=== PATIENT | female | born 1945 | race African-American/Black ===

== ENCOUNTER 2016-11-16 12:55 | Emergency (ER) | payer OTHER ==
[2016-11-16 13:01] VITALS: BP 138/79; PULSE 118; TEMP 98.5; BMI 29.0
--- NOTE | 2016-11-16 13:27 | PDOC ---
[id number] No Limitations - History of Present Illness Initial Comments: 11/16/16 13:31 The patient is a 71-year-old woman, accompanied by family, with a past medical history of hypertension who presents to the emergency department via walk-in for further evaluation of persistent inner right thigh pain. No recent fall/ injury. As per patient, her symptoms started approximately 1 week ago. She states that since onset, her pain has subsided but has worsen the past 1-2 day(s ) as her pain had intensified and exacerbated with movements. Patient denies any associated symptoms of back/neck pain, weakness and paresthesias to her extremities. Patient admits she had an outpatient appointment with her Orthopedist,gregg Hernández for which she was informed she had a joint effusion, which was drained and was given a Cortisone shot. No fever, chills, generalized weakness. No cough, shortness of breath, chest pain, lightheadedness, dizziness, palpitations. No abdominal pain, nausea, vomiting, diarrhea. <Paris Mark - Last Filed: 11/16/16 14:47> <Jose Guadalupe Galvez - Last Filed: 11/17/16 09:17> - General Chief Complaint: Pain Stated Complaint: PAIN/ RT THIGH, KNEE, BODY ACHE Time Seen by Provider: 11/16/16 13:26 Past History <Paris Mark - Last Filed: 11/16/16 14:47> - Past Medical History Anemia: No Asthma: No Cancer: No Cardiac Disorders: No CVA: No COPD: No CHF: No Dementia: No Diabetes: No GI Disorders: No Disorders: No HTN: Yes Hypercholesterolemia: No Liver Disease: No Seizures: No Thyroid Disease: No - Surgical History Abdominal Surgery: No Appendectomy: No Cardiac Surgery: No Cholecystectomy: No Lung Surgery: No Neurologic Surgery: No Orthopedic Surgery: Yes (ARTHROSCOPY-RT KNEE) - Psycho/Social/Smoking Cessation Hx Anxiety: No Suicidal Ideation: No Smoking History: Never smoked Have you smoked in the past 12 months: No Hx Alcohol Use: No Drug/Substance Use Hx: No Substance Use Type: None Hx Substance Use Treatment: No <Jose Guadalupe Galvez - Last Filed: 11/17/16 09:17> - Past Medical History Allergies/Adverse Reactions: Allergies Allergy/AdvReac Type Severity Reaction Status Date / Time No Known Drug Allergies Allergy Verified 11/16/16 13:01 Home Medications: Ambulatory Orders Aspirin [Ecotrin] 81 mg PO ASDIR 03/09/15 Cholecalciferol (Vitamin D3) [Vitamin D3] 2,000 unit PO DAILY 03/09/15 Cyanocobalamin [Vitamin B12 -] 500 mcg PO DAILY 03/09/15 Hydrochlorothiazide [Hctz -] 25 mg PO DAILY 03/09/15 Losartan Potassium 100 mg PO DAILY 03/09/15 [place]-3S/Dha/Epa/Fish Oil [[place]-3 Fish Oil 1,000 mg Sfgl] 1 each PO DAILY 03/09 Ibuprofen [Motrin -] 600 mg PO QID PRN #120 tablet 11/16/16 Review of Systems - Review of Systems Able to Perform ROS?: Yes Comments:: 11/16/16 13:31 GENERAL/CONSTITUTIONAL: No fever or chills. No weakness. MUSCULOSKELETAL: Yes: +Right thigh pain. No joint swelling or pain. No neck or back pain. SKIN: No rash <Paris Mark - Last Filed: 11/16/16 14:47> *Physical Exam - Vital Signs Last Vital Signs Temp Pulse Resp BP Pulse Ox 98.5 F 118 H 20 138/79 99 11/16/16 12:58 11/16/16 12:58 11/16/16 12:58 11/16/16 12:58 11/16/16 12:58 - Physical Exam Comments: 11/16/16 13:32 GENERAL: Awake, alert, and fully oriented, in no acute distress LUNGS: Breath sounds equal, clear to auscultation bilaterally. No wheezes, and no crackles HEART: Regular rate and rhythm, normal S1 and S2, no murmurs, rubs or gallops ABDOMEN: Soft, nontender, normoactive bowel sounds. No guarding, no rebound. No masses EXTREMITIES: Normal range of motion, no edema. No clubbing or cyanosis. No cords, erythema, or tenderness NEUROLOGICAL: Cranial nerves II through XII grossly intact. Normal speech <Paris Mark - Last Filed: 11/16/16 14:47> - Vital Signs Last Vital Signs Temp Pulse Resp BP Pulse Ox 98.5 F 118 H 20 138/79 99 11/16/16 12:58 11/16/16 12:58 11/16/16 12:58 11/16/16 12:58 11/16/16 12:58 <Jose Guadalupe Galvez - Last Filed: 11/17/16 09:17> ED Treatment Course - RADIOLOGY Radiograph Interpretation: 11/16/16 14:04 EXAM: US/DUPLEX VASCUL US-1LEG Reviewed by Dr. Jose Guadalupe Galvez Interpreted by Dr. Aristides Chpaman IMPRESSION: No DVT is identified involving the right leg. EXAM: RAD/HIP PELVIS IMPRESSION: An AP view of the pelvis and images of the right hip reveal intact hips with no sign of fracture, subluxation or bone destruction. The SI joints are patent. There are degenerative spine changes. There is a nonspecific bowel pattern. There is though a sclerotic density seen in the right iliac bone just above the right acetabulum. The exact nature of this is unclear. Correlation recommended. Further imaging may be of help. <Paris Mark - Last Filed: 11/16/16 14:47> *DC/Admit/Observation/Transfer - Attestations Scribe Attestion: 11/16/16 13:32 Documentation prepared by Paris Mark, acting as medical clerk for Jose Guadalupe Galvez MD. <Paris Mark - Last Filed: 11/16/16 14:47> - Discharge Dispostion Admit: No <Jose Guadalupe Galvez - Last Filed: 11/17/16 09:17> Diagnosis at time of Disposition: Arthritis - Discharge Dispostion Disposition: HOME - Prescriptions Prescriptions: Ibuprofen [Motrin -] 600 mg PO QID PRN #120 tablet PRN Reason: Pain - Referrals Referrals: Cory Hernández MD [Staff Physician] - Franky Smith MD [Primary Care Provider] - - Patient Instructions Printed Discharge Instructions: Osteoarthritis
[2016-11-16] MEDS ORDERED: IBUPROFEN 600 MG TABLET (FP) PO ONE ×2 (15:20→15:24)
== END 2016-11-16 15:24 | disposition home or self-care (01) ==
LOC: JER 12:55
DX: M13.861 Other specified arthritis, right knee (principal)
CPT/HCPCS: 73523-TC; 93971-TC; 99283-25

== ENCOUNTER 2017-03-20 07:55 | Day surgery (SDC) | payer OTHER ==
[2017-03-18 17:00] VITALS: BMI 29.0
[2017-03-20] MEDS ORDERED: methylPREDNISolone ACET (DEPO) 80 MG/1 ML VIAL ONE (07:59)
[2017-03-20] MEDS ORDERED: LIDOCAINE HCL 1%, 10 MG/ML (20ML VIAL) ONE (08:00)
[2017-03-20 08:15] VITALS: TEMP 97.8
--- NOTE | 2017-03-20 09:07 | HP ---
Satellite [facility] - Chief Complaint Chief Complaint: right hip pain History Source: Patient Limitations to Obtaining History: No Limitations - Past Medical History Allergies/Adverse Reactions: Allergies Allergy/AdvReac Type Severity Reaction Status Date / Time No Known Drug Allergies Allergy Verified 03/18/17 17:00 Cardiovascular: Yes: HTN, Hyperlipdemia - Current Medications Current Medications: Home Medications Medication Instructions Recorded Aspirin [Ecotrin] 81 mg PO ASDIR 03/09/15 Cholecalciferol (Vitamin D3) 2,000 unit PO DAILY 03/09/15 [Vitamin D3] Cyanocobalamin [Vitamin B12 -] 500 mcg PO DAILY 03/09/15 Hydrochlorothiazide [Hctz -] 25 mg PO DAILY 03/09/15 Losartan Potassium 100 mg PO DAILY 03/09/15 [place]-3S/Dha/Epa/Fish Oil [[place]-3 1 each PO DAILY 03/09/15 Fish Oil 1,000 mg Sfgl] Acetaminophen [Tylenol] 650 mg PO PRN PRN 03/18/17 Magnesium Oxide [Magnesium] 400 mg PO HS 03/18/17 Satellite Physical Exam - Physical Examination Vital Signs: Vital Signs Period Temp Pulse Resp BP Sys/Rodriguez Pulse Ox Last 24 Hr 97.8 F 84 20 133/77 100 Extremities: Other (increased pain with IR/ER right hip) Satellite Impression/Plan - Impression/Plan Impression: DJD right hip Operative Procedure: arthrogram and injection of cortisone right hip Date to be Performed: 03/20/17
[2017-03-20] MEDS ORDERED: PROPOFOL 20 ML ONE (09:24)
--- NOTE | 2017-03-20 09:49 | OP ---
Operative Note - Note: Operative Date: 03/20/17 Pre-Operative Diagnosis: DJD RIGHT HIP Operation: ARTHROGRAM RIGHT HIP WITH INJECTION OF CORTISONE Post-Operative Diagnosis: Same as Pre-op Surgeon: Cory Hernández Anesthesia: General Estimated Blood Loss (mls): 0 Operative Report Dictated: Yes
[2017-03-20] MEDS ORDERED: ACETAMINOPHEN 325 MG TABLET (FP) PO PRN (09:55)
[2017-03-20] MEDS ORDERED: ONDANSETRON 4 MG/2 ML VIAL IVPUSH PRN (09:55)
[2017-03-20] MEDS ORDERED: LACTATED RINGERS SOLUTION 1,000 ML IV SCH (10:00)
[2017-03-20 12:41] VITALS: BP 142/82; PULSE 98
[2017-03-20] MEDS ORDERED: ACETAMINOPHEN 325 MG TABLET (FP) ONE (12:50)
--- NOTE | 2017-03-21 10:57 | OP ---
DATE OF OPERATION: 03/20/2017 PREOPERATIVE DIAGNOSIS: Degenerative joint disease right knee. POSTOPERATIVE DIAGNOSIS: Degenerative joint disease right knee. PROCEDURE: Right hip arthrogram and injection of cortisone. SURGICAL ATTENDING: Cory Hernández MD ANESTHESIA: IV sedation. COMPLICATIONS: None. DESCRIPTION OF PROCEDURE: The patient was taken to the operating room on March 20, 2017. IV sedation was administered by the anesthesiologist. Using fluoroscopic guidance, a spinal needle was administered anterior and 45-degree oblique toward the hip joint. This was done after prep and draping the area in the usual sterile fashion. Once the needle was thought to be in the joint, an injection of contrast diluted 50% was injected, which confirmed that the contrast was in the hip joint itself. The fluid was then aspirated out of the hip, and 10 mL of lidocaine with 80 mg of Depo-Medrol was administered into the hip joint. The needle was pulled. Sterile Band-Aid was applied with pressure. The patient was awakened from anesthesia and transferred to recovery in stable condition. No complications. Estimated blood loss negligible. Doni DEAN/[id number]
== END 2017-03-20 13:04 | disposition home or self-care (01) ==
LOC: JASU-SURG 07:55 → EDSTATUS 10:15 → JASU-SURG 13:04
PROVIDERS: ATTEND Orthopaedic Surgery
PROC: 3E0U3BZ Introduction of Anesthetic Agent into Joints, Percutaneous Approach (ICD-10-PCS; principal; 2017-03-20 09:30)
DX: M16.11 Unilateral primary osteoarthritis, right hip (principal)
CPT/HCPCS: 76000-TC; 94760

== ENCOUNTER 2019-04-24 09:27 | Emergency (ER) | payer OTHER ==
[2019-04-24 09:32] VITALS: BMI 29.0
--- NOTE | 2019-04-24 09:52 | PDOC ---
Attending Attestation - Resident Resident Name: Ena Singh - HPI HPI: 04/24/19 11:28 Pt presents to the ED complaining of a several week history of intermittent, band like headaches. Also complains of a several month history of feeling off balance when she walks. Denies temporal pain, jaw claudication, visula complaints, fevers, nausea or vomiting. Pain is gradual onset and mild in severity. Patient had negative Ct head and MRI in November. - Physicial Exam PE: 04/24/19 11:47 Agree with resident exam. Patient is alert and oriented and in no acute distress. No temporal tenderness. Lungs: CTA b/l CV: rrr no m/r/g Abdomen: soft, non tender non distended Neuro: alert and oriented x 3, CN grossly intact , moving all extremities with good strength. Tachycardia resolved. 04/24/19 11:51 - Medical Decision Making 04/24/19 11:51 Pt presents to the ED complaining of subacute intermittent headache and a subjective feeling of being off balance. Neurologically intact in the ED. Labs and CT head checked to rule out intracrainal lesion or electrolyte imbalance and are negative. Case discussed with Dr. Goel, geriatric personal care aide for Dr. Koch. Will discharge home with follow up with Dr. Koch and Neurology. Patient understands that she needs further work up.
[2019-04-24] MEDS ORDERED: ACETAMINOPHEN 1000 MG/100 ML VIAL (NON FORMULARY) IVPB ONE (09:57)
--- NOTE | 2019-04-24 09:57 | PDOC ---
History of Present Illness - General Chief Complaint: Headache Stated Complaint: ABD / HEADACHE Time Seen by Provider: 04/24/19 09:43 - History of Present Illness Initial Comments: 04/24/19 10:23 The patient is a 73 year old female with a PMH of HLD and OA who presents with headache. Headache is band like, "discomfort not pain" and has been occuring for the last 2-3 weeks in the morning. Endorses nausea without vomiting. No previous h/o similar headaches. Patient also reports isolated episodes of "dizziness" which occur when walking which she describes as feeling as if she can't make her target location. Denies associated weakness, visual or speech changes. Episodes have occurred once or twice weekly for the last 2-3 weeks. Was evaluated by her PMD, Dr. Rojas, last week but did not tell him about the episodes because she thought the symptoms had resolved. States she had a cat scan and MRI in November 2017 but she is unsure why and states there we no concerning findings to her knowledge. NKDA Surgical: none reported Social: lifetime non-smoker, denies other toxic habits PMD: Dr. Rojas Past History - Past Medical History Allergies/Adverse Reactions: Allergies Allergy/AdvReac Type Severity Reaction Status Date / Time No Known Drug Allergies Allergy Verified 04/24/19 09:32 Home Medications: Ambulatory Orders Aspirin [Ecotrin] 81 mg PO ASDIR 03/09/15 Cholecalciferol (Vitamin D3) [Vitamin D3] 1,000 unit PO DAILY 03/09/15 Cyanocobalamin [Vitamin B12 -] 500 mcg PO DAILY 03/09/15 [place]-3S/Dha/Epa/Fish Oil [[place]-3 Fish Oil 1,000 mg Sfgl] 1 each PO DAILY 03/09 Magnesium Oxide [Magnesium] 400 mg PO HS 03/18/17 Atorvastatin Ca [Lipitor] 10 mg PO ASDIR 04/24/19 Valsartan 350 mg PO DAILY 04/24/19 Vit C/E/Zn/Coppr/Lutein/Zeaxan [Preservision Areds 2 Softgel] 1 each PO ASDIR Anemia: No Asthma: No Cancer: No Cardiac Disorders: No CVA: No COPD: No CHF: No Dementia: No Diabetes: No GI Disorders: No Disorders: No HTN: Yes Hypercholesterolemia: No Liver Disease: No Seizures: No Thyroid Disease: No Other medical history: arthritis - Surgical History Abdominal Surgery: No Appendectomy: No Cardiac Surgery: No Cholecystectomy: No Lung Surgery: No Neurologic Surgery: No Orthopedic Surgery: Yes (ARTHROSCOPY-RT KNEE) - Suicide/Smoking/Psychosocial Hx Smoking History: Never smoked Have you smoked in the past 12 months: No Hx Alcohol Use: No Drug/Substance Use Hx: No Substance Use Type: None Hx Substance Use Treatment: No Review of Systems - Review of Systems Constitutional: No: Chills, Fever HEENTM: No: Recent change in vision Respiratory: No: Cough, Shortness of Breath Cardiac (ROS): No: Chest Pain, Lightheadedness, Palpitations *Physical Exam - Vital Signs Last Vital Signs Temp Pulse Resp BP Pulse Ox 98.7 F 104 H 18 171/95 H 98 04/24/19 09:28 04/24/19 09:28 04/24/19 09:28 04/24/19 09:28 04/24/19 09:28 - Physical Exam Comments: 04/24/19 13:52 General: awake, alert, well appearing Neuro: A&O x3, CN II-XII intact, 4+ strength in B/L UE and LE extremities, non- ataxic, non-antalgic gait CV: S1, S2, RRR Respiratory: CLTA B/L, no wheeze/crackle Abdomen: soft, non-tender, (+) bowel sounds Extremity: 2+ DP pulse B/L, no edema ED Treatment Course - LABORATORY CBC & Chemistry Diagram: 04/24/19 10:02 04/24/19 10:02 Medical Decision Making - Medical Decision Making 04/24/19 10:52 73 year old female with headaches and reported neurological deficits while ambulating. Hypertensive (179/95) and mildly tachycardic (HR 104) @ triage No neurologic deficit noted on exam including normal gait. Will obtain Head CT to r/o mass/malignancy, ischemic changes related to CVA/ TIA. 04/24/19 11:[address] negative Patient reassessed @ bedside Repeat BP 129/65, HR 70's Symptomatically improved, no repeat ambulatory symptoms while in ED Patient requires neurology evaluation of gait disturbance including vestibular disorder vs. extrapyramidal dysfuction Will page PMD to ensure patient receives proper evaluation/continuation of care Case d/w Dr. Goel, covering for patient's PMD. Agrees w/discharge home and patient can be seen in office tomorrow 04/24/19 12:03 Patient reassessed @ bedside Remains ASx, states she is comfortable with discharge home; notes she lives with her son Patient given referral to neurology and discharged home with plan to see PMD tomorrow for further evaluation. 04/24/19 13:39 I discussed the physical exam findings, ancillary test results and final diagnoses with the patient. I answered all of the patient's questions. The patient was satisfied with the care received and felt comfortable with the discharge plan and treatment plan. The patient will return to the Emergency Department with any new, persistent or worsening symptoms. *DC/Admit/Observation/Transfer Diagnosis at time of Disposition: Headache - Discharge Dispostion Disposition: HOME Condition at time of disposition: Improved Decision to Admit order: No - Referrals Referrals: Franky Smith MD [Primary Care Provider] - Ernst James MD [Staff Physician] - - Patient Instructions Printed Discharge Instructions: DI for Headache Additional Instructions: You were evaluated today for your headache and dizziness while walking. A cat scan of your head and all of your lab results showed no concerning findings. Please call Dr. Rojas's office tomorrow morning for an appointment to be evaluated in the next 3 days. We have also provided a referral to a neurologist, please make an appointment for evaluation in the next [address] Rojas for a referral. You can take Tylenol (up to 3000 mg daily) for your headache for the next week, however a neurologist should provide you with alf medication. Your care is not complete until you are evaluated by Dr. Rojas and a neurologist. Return to the Emergency Department for any new/worsening/concerning symptoms. - Post Discharge Activity
[2019-04-24] MEDS ORDERED: ACETAMINOPHEN INJECTION 100 ML IVPB ONE (10:03)
[2019-04-24 10:40] LABS: BASO % 0.8 % (0-2.0); EOS % 2.2 % (0-4.5); HEMATOCRIT 44.2 % (32.4-45.2); HEMOGLOBIN 14.5 GM/dL (10.7-15.3); LYMPH % 30.4 % (8-40); MCH 28.5 pg (25.7-33.7); MCHC 32.7 g/dl (32.0-36.0); MEAN CELL VOLUME 87.1 fl (80-96); MEAN PLT VOLUME 8.6 fl (7.5-11.1); MONO % 11.4 % (3.8-10.2); NEUT % 55.2 % (42.8-82.8); PLATELET COUNT 229 K/MM3 (134-434); RBC 5.08 M/mm3 (3.60-5.2); RDW 15.5 % (11.6-15.6); WHITE BLOOD COUNT 4.1 K/mm3 (4.0-10.0)
[2019-04-24 10:54] LABS: ALBUMIN 3.6 g/dl (3.4-5.0); BILIRUBIN,TOTAL 0.4 mg/dL (0.2-1); BLOOD UREA NITROGEN 13.1 mg/dL (7-18); POTASSIUM 4.3 mmol/L (3.5-5.1); TOT PROT 7.6 g/dl (6.4-8.2)
[2019-04-24 13:07] VITALS: BP 167/95; PULSE 70; TEMP 97.8
--- NOTE | 2019-04-25 11:45 | EKG ---
Test Reason : Blood Pressure : / mmHG Vent. Rate : 088 BPM Atrial Rate : 088 BPM P-R Int : 134 ms QRS Dur : 076 ms QT Int : 360 ms P-R-T Axes : 068 015 045 degrees QTc Int : 435 ms NORMAL SINUS RHYTHM POSSIBLE LEFT ATRIAL ENLARGEMENT BORDERLINE ECG WHEN COMPARED WITH ECG OF 09-MAR-2015 11:48, NO SIGNIFICANT CHANGE WAS FOUND Confirmed by BARAK ROBERSON MD ([id number]) on 04/25/2019 11:44:46 AM Referred By: Confirmed By:BARAK ROBERSON MD
== END 2019-04-24 13:10 | disposition home or self-care (01) ==
LOC: JER 09:27
PROC: 3E033NZ Introduction of Analgesics, Hypnotics, Sedatives into Peripheral Vein, Percutaneous Approach (ICD-10-PCS; principal; 2019-04-24)
DX: R51 Headache (principal); I10 Essential (primary) hypertension; E78.5 Hyperlipidemia, unspecified
CPT/HCPCS: 36415; 70450-TC; 80053; 85025; 93005; 93010; 96374; 99283-25; J0131

== ENCOUNTER 2019-10-03 15:10 | Observation (INO) | payer OTHER ==
[2019-10-03 15:18] VITALS: BMI 29.3
--- NOTE | 2019-10-03 15:19 | PDOC ---
Rapid Medical Evaluation Chief Complaint: Headache Time Seen by Provider: 10/03/19 15:14 Medical Evaluation: Allergies Allergy/AdvReac Type Severity Reaction Status Date / Time No Known Drug Allergies Allergy Verified 04/24/19 09:32 10/03/19 15:15 I have performed a brief in-person evaluation of this patient. The patient presents with a chief complaint of:acute onset of headche and dizziness- BP per EMS 180/120, denies numbness or tingling. no unilateral changes. Pertinent physical exam findings: A&Ox 3, no neuro chnages I have ordered the following: cbc, CMP, EKG The patient will proceed to the ED for further evaluation. 10/03/19 15:16 Discharge Disposition - Diagnosis Dizziness - Referrals - Patient Instructions - Post Discharge Activity
[2019-10-03 15:52] LABS: BASO % 1.4 % (0-2.0); EOS % 1.9 % (0-4.5); HEMATOCRIT 44.8 % (32.4-45.2); HEMOGLOBIN 14.6 GM/dL (10.7-15.3); LYMPH % 31.3 % (8-40); MCH 28.5 pg (25.7-33.7); MCHC 32.6 g/dl (32.0-36.0); MEAN CELL VOLUME 87.5 fl (80-96); MEAN PLT VOLUME 8.6 fl (7.5-11.1); MONO % 12.5 % (3.8-10.2); NEUT % 52.9 % (42.8-82.8); PLATELET COUNT 274 K/MM3 (134-434); RBC 5.12 M/mm3 (3.60-5.2); RDW 15.4 % (11.6-15.6); WHITE BLOOD COUNT 4.8 K/mm3 (4.0-10.0)
[2019-10-03 16:30] LABS: ALK PHOS 142 U/L (45-117); ANION GAP 7 MMOL/L (8-16); BILIRUBIN,TOTAL 0.4 mg/dL (0.2-1); BLOOD UREA NITROGEN 10.9 mg/dL (7-18); CALCIUM 9.8 mg/dL (8.5-10.1); CHLORIDE 108 mmol/L (98-107); CO2 27 mmol/L (21-32); GLUCOSE,RANDOM 83 mg/dL (74-106); POTASSIUM 4.1 mmol/L (3.5-5.1); SGOT/AST 30 U/L (15-37); SGPT/ALT 27 U/L (13-61); SODIUM 142 mmol/L (136-145)
--- NOTE | 2019-10-03 16:35 | PDOC ---
Attending Attestation - Resident Resident Name: Alexx Albert - ED Attending Attestation I have performed the following: I have examined & evaluated the patient, The case was reviewed & discussed with the resident, I agree w/resident's findings & plan, Exceptions are as noted
--- NOTE | 2019-10-03 16:55 | PDOC ---
History of Present Illness - General Chief Complaint: Headache Stated Complaint: HEADACHE/DIZZINESS Time Seen by Provider: 10/03/19 15:14 - History of Present Illness Initial Comments: 10/03/19 16:45 74f with pmh of HTN presents with episode of lightheadedness after standing up abruptly around 2pm today. She took meclizine with no relief. "felt the blood drain from [her] head". Had occasional episode of diziness in the past that were treated with meclizine. Denies headache, change in vision, chest pain, shortness of breath, n/v/d or sensation of vertigo. Past History - Past Medical History Allergies/Adverse Reactions: Allergies Allergy/AdvReac Type Severity Reaction Status Date / Time No Known Drug Allergies Allergy Verified 04/24/19 09:32 Home Medications: Ambulatory Orders Aspirin [Ecotrin] 81 mg PO ASDIR 03/09/15 Cholecalciferol (Vitamin D3) [Vitamin D3] 1,000 unit PO DAILY 03/09/15 Cyanocobalamin [Vitamin B12 -] 500 mcg PO DAILY 03/09/15 [place]-3S/Dha/Epa/Fish Oil [[place]-3 Fish Oil 1,000 mg Sfgl] 1 each PO DAILY 03/09 Magnesium Oxide [Magnesium] 400 mg PO HS 03/18/17 Atorvastatin Ca [Lipitor] 10 mg PO ASDIR 04/24/19 Valsartan 350 mg PO DAILY 04/24/19 Vit C/E/Zn/Coppr/Lutein/Zeaxan [Preservision Areds 2 Softgel] 1 each PO ASDIR Anemia: No Asthma: No Cancer: No Cardiac Disorders: No CVA: No COPD: No CHF: No Dementia: No Diabetes: No GI Disorders: No Disorders: No HTN: Yes Hypercholesterolemia: No Liver Disease: No Seizures: No Thyroid Disease: No - Surgical History Abdominal Surgery: No Appendectomy: No Cardiac Surgery: No Cholecystectomy: No Lung Surgery: No Neurologic Surgery: No Orthopedic Surgery: Yes (ARTHROSCOPY-RT KNEE) - Immunization History Immunization Up to Date: No - Psycho Social/Smoking Cessation Hx Smoking History: Never smoked Have you smoked in the past 12 months: No Information on smoking cessation initiated: No Hx Alcohol Use: No Drug/Substance Use Hx: No Substance Use Type: None Hx Substance Use Treatment: No Review of Systems - Review of Systems Able to Perform ROS?: Yes Is the patient limited Cambodian proficient: No Constitutional: No: Symptoms Reported HEENTM: No: Symptoms Reported Respiratory: No: Symptoms reported Cardiac (ROS): No: Symptoms Reported ABD/GI: No: Blood Streaked Bowels : No: Symptoms Reported Musculoskeletal: No: Symptoms Reported Integumentary: No: Symptoms Reported Neurological: Yes: See HPI All Other Systems: Reviewed and Negative *Physical Exam - Vital Signs Last Vital Signs Temp Pulse Resp BP Pulse Ox 98.6 F 105 H 16 163/95 97 10/03/19 15:15 10/03/19 15:15 10/03/19 15:15 10/03/19 15:15 10/03/19 15:15 - Physical Exam General Appearance: Yes: Nourished, Appropriately Dressed. No: Apparent Distress HEENT: positive: EOMI, VIRGIL, Normal ENT Inspection Respiratory/Chest: positive: Lungs Clear, Normal Breath Sounds. negative: Chest Tender, Respiratory Distress Cardiovascular: positive: Regular Rhythm, Regular Rate, S1, S2 Gastrointestinal/Abdominal: positive: Normal Bowel Sounds, Flat, Soft. negative : Tender Musculoskeletal: positive: Normal Inspection. negative: CVA Tenderness Extremity: positive: Normal Capillary Refill, Normal Inspection, Normal Range of Motion Integumentary: positive: Normal Color, Dry, Warm Neurologic: positive: Fully Oriented, Alert, Normal Mood/Affect, Normal Response , Motor Strength 5/5 ED Treatment Course - LABORATORY CBC & Chemistry Diagram: 10/03/19 15:39 10/03/19 15:39 - ADDITIONAL ORDERS Additional order review: Laboratory Results 10/03/19 15:39 Sodium 142 Potassium 4.1 Chloride 108 H Carbon Dioxide 27 Anion Gap 7 L BUN 10.9 Creatinine 1.0 Est GFR (CKD-EPI)AfAm 63.38 Est GFR (CKD-EPI)NonAf 54.68 Random Glucose 83 Calcium 9.8 Total Bilirubin 0.4 AST 30 ALT 27 Alkaline Phosphatase 142 H Total Protein 8.0 Albumin 4.0 10/03/19 15:39 RBC 5.12 MCV 87.5 MCHC 32.6 RDW 15.4 MPV 8.6 Neutrophils % 52.9 Lymphocytes % 31.3 Monocytes % 12.5 H Eosinophils % 1.9 Basophils % 1.4 Medical Decision Making - Medical Decision Making 11/18/19 16:55 74f with lightheadedness exacerbated when standing abruptly. Likely orthostatics vs cardiogenic vs vertigo 10/03/19 19:10 Patient labs WNKl. sTILL FEEL DIZZY. wILL GIVE FLUID, REGLAN AND TYLENOL AND REASSESS. Patient signed out to Dr. Avitia. Discharge - Discharge Information Problems reviewed: Yes Clinical Impression/Diagnosis: Dizziness Condition: Stable - Follow up/Referral Referrals: Franky Smith MD [Primary Care Provider] - - Patient Discharge Instructions - Post Discharge Activity
[2019-10-03] MEDS ORDERED: ACETAMINOPHEN 1000 MG/100 ML VIAL (NON FORMULARY) IVPB ONE (18:20)
[2019-10-03] MEDS ORDERED: METOCLOPRAMIDE HCL INJECTION 10 MG/2 ML VIAL IVPUSH ONE (18:20)
--- NOTE | 2019-10-03 18:24 | PDOC ---
Documentation entered by Cristela Loo SCRIBE, acting as scribe for Caroline Jules DO. Caroline Jules DO: This documentation has been prepared by the Cinda wilsk Xhesika, SCRIBE, under my direction and personally reviewed by me in its entirety. I confirm that the documentation accurately reflects all work, treatment, procedures, and medical decision making performed by me. Attending Attestation - Resident Resident Name: Alexx Albert - ED Attending Attestation I have performed the following: I have examined & evaluated the patient, The case was reviewed & discussed with the resident, I agree w/resident's findings & plan, Exceptions are as noted - HPI HPI: 10/03/19 17:35 The patient is a 74 year old female with a significant PMH of HTN, HLD, and vertigo who presents to the emergency department for lightheadedness since 2pm after standing up quickly. Patient notes she took meclizine with no relief of symptoms. The patient denies chest pain, shortness of breath, headache or vision changes. Denies fever, chills, cough, nausea, vomiting, diarrhea and constipation. Allergies: NKDA Past surgical history: ARTHROSCOPY-RT KNEE) PCP: Franky Smith - Physicial Exam PE: 10/03/19 17:36 GENERAL: Awake, alert, and fully oriented, in no acute distress HEAD: No signs of trauma EYES: PERRLA, EOMI, sclera anicteric, conjunctiva clear ENT: Auricles normal inspection, hearing grossly normal, nares patent, oropharynx clear without exudates. Moist mucosa NECK: Normal ROM, supple, no lymphadenopathy, JVD, or masses LUNGS: Breath sounds equal, clear to auscultation bilaterally. No wheezes, and no crackles HEART: Regular rate and rhythm, normal S1 and S2, no murmurs, rubs or gallops ABDOMEN: Soft, nontender, normoactive bowel sounds. No guarding, no rebound. No masses EXTREMITIES: Normal range of motion, no edema. No clubbing or cyanosis. No cords, erythema, or tenderness NEUROLOGICAL: Cranial nerves II through XII grossly intact. Normal speech SKIN: Warm, Dry, normal turgor, no rashes or lesions noted. - Medical Decision Making 10/03/19 17:45 a/p: 74yo female with hx of htn and arthritis with dizziness today -pt with hx of vertigo-took meclizine at home without improvement -denies n/v/d -denies holder -denies blurred vision -denies paresthesias -pt sitting up, laughing, in nad -does not have orthostatic vs -will give tylenol and reglan -labs sent reviewed, no acute findings 10/03/19 18:56 pt receiving meds if pt feels better after hydration and meds she is stable for dc to home Heart Score/ECG Review - ECG Intrepretation Comment:: 10/03/19 18:24 sinus tach at 108, nl axis, nl interval, no acute st/t wave findings
[2019-10-03] MEDS ORDERED: LACTATED RINGERS SOLUTION 1000 ML INFUS.BAG IV ONE (18:33)
[2019-10-03] MEDS ORDERED: METOCLOPRAMIDE HCL INJECTION 10 MG/2 ML VIAL ONE ×2 (18:48→20:54)
[2019-10-03] MEDS ORDERED: ACETAMINOPHEN INJECTION 100 ML IVPB ONE (18:49)
--- NOTE | 2019-10-03 20:19 | PDOC ---
*Physical Exam - Vital Signs Last Vital Signs Temp Pulse Resp BP Pulse Ox 98.5 F 101 H 15 145/73 97 10/03/19 17:24 10/03/19 17:24 10/03/19 17:24 10/03/19 17:24 10/03/19 17:24 ED Treatment Course - LABORATORY CBC & Chemistry Diagram: 10/03/19 15:39 10/03/19 15:39 - ADDITIONAL ORDERS Additional order review: Laboratory Results 10/03/19 15:39 Sodium 142 Potassium 4.1 Chloride 108 H Carbon Dioxide 27 Anion Gap 7 L BUN 10.9 Creatinine 1.0 Est GFR (CKD-EPI)AfAm 63.38 Est GFR (CKD-EPI)NonAf 54.68 Random Glucose 83 Calcium 9.8 Total Bilirubin 0.4 AST 30 ALT 27 Alkaline Phosphatase 142 H Creatine Kinase 174 Creatine Kinase Index 1.2 CK-MB (CK-2) 2.2 Troponin I < 0.02 Total Protein 8.0 Albumin 4.0 10/03/19 15:39 RBC 5.12 MCV 87.5 MCHC 32.6 RDW 15.4 MPV 8.6 Neutrophils % 52.9 Lymphocytes % 31.3 Monocytes % 12.5 H Eosinophils % 1.9 Basophils % 1.4 Medical Decision Making - Medical Decision Making 10/03/19 20:17 Patient signed out to me pending reevaluation for possible discharge Upon further questioning patient admits that she did not have actual dizziness but felt like she was going to pass out after exertion while cleaning the house and moving heavy objects She does have a salesforce developer whom she has seen recently for similar symptoms but has not had a stress test for some time She was tachycardic on arrival but has had no leg swelling, calf pain shortness of breath chest pain or dyspnea on exertion Ambulation is intact Will CT head, hold for observation for presyncope and further evaluation Discharge - Discharge Information Problems reviewed: Yes Clinical Impression/Diagnosis: Dizziness Condition: Stable - Follow up/Referral Referrals: Franky Smith MD [Primary Care Provider] - - Patient Discharge Instructions - Post Discharge Activity
--- NOTE | 2019-10-03 20:36 | PDOC ---
*Physical Exam - Vital Signs Last Vital Signs Temp Pulse Resp BP Pulse Ox 98.5 F 101 H 15 145/73 97 10/03/19 17:24 10/03/19 17:24 10/03/19 17:24 10/03/19 17:24 10/03/19 17:24 - Physical Exam Comments: 10/03/19 20:35 GENERAL: Awake, alert, and fully oriented, in no acute distress HEAD: No signs of trauma, normocephalic, atraumatic EYES: PERRLA, EOMI, sclera anicteric, conjunctiva clear ENT: Auricles normal inspection, hearing grossly normal, nares patent, oropharynx clear without exudates. Moist mucosa NECK: Normal ROM, supple, no lymphadenopathy, JVD, or masses LUNGS: No distress, speaks full sentences, clear to auscultation bilaterally HEART: Regular rate and rhythm, normal S1 and S2, no murmurs, rubs or gallops, peripheral pulses normal and equal bilaterally. ABDOMEN: Soft, nontender, normoactive bowel sounds. No guarding, no rebound. No masses EXTREMITIES : Normal inspection, Normal range of motion, no edema. No clubbing or cyanosis NEUROLOGICAL: Negative nystagmus. Cranial nerves II through XII grossly intact. Normal speech, normal gait, no focal sensorimotor deficits. absent ataxia with gait. Nml BALTA. Absent dysmetria on FTN. SKIN: Warm, Dry, normal turgor, no rashes or lesions noted ED Treatment Course - LABORATORY CBC & Chemistry Diagram: 10/03/19 15:39 10/03/19 15:39 - ADDITIONAL ORDERS Additional order review: Laboratory Results 10/03/19 15:39 Sodium 142 Potassium 4.1 Chloride 108 H Carbon Dioxide 27 Anion Gap 7 L BUN 10.9 Creatinine 1.0 Est GFR (CKD-EPI)AfAm 63.38 Est GFR (CKD-EPI)NonAf 54.68 Random Glucose 83 Calcium 9.8 Total Bilirubin 0.4 AST 30 ALT 27 Alkaline Phosphatase 142 H Creatine Kinase 174 Creatine Kinase Index 1.2 CK-MB (CK-2) 2.2 Troponin I < 0.02 Total Protein 8.0 Albumin 4.0 10/03/19 15:39 RBC 5.12 MCV 87.5 MCHC 32.6 RDW 15.4 MPV 8.6 Neutrophils % 52.9 Lymphocytes % 31.3 Monocytes % 12.5 H Eosinophils % 1.9 Basophils % 1.4 - RADIOLOGY Radiology Studies Ordered: Category Date Time Status HEAD CT WITHOUT CONTRAST [CT] Stat CT Scan 10/03/19 19:49 Ordered Medical Decision Making - Medical Decision Making 10/03/19 20:26 73 yo F withh/o HLD, HTN, vertigo who p/w lightheadedness. HR 105, BP 163/ Patient reports presyncopal event at approximately 2:00 PM today, exacerbated by ambulation with absent LOC. Patient reports lightheadedness reproducible with head movement, and reports elevated HR, now resolved. Physical exam unremarkable. Pt. denies MONTOYA, vision change, palpitations, PND, leg swelling/pain , N/V, F,C, CP, SOB, urinary complaints, hematuria, BPR, abdominal pain, diarrhea, constipation, weakness, sensory changes. Will assess for cardiac dysarythmias, electrolyte abnml, metabolic and toxic derangements, acid-base disturbances, infection. Ed Course: EKG: Sinus tachycardia HR 108, NSR with absent KEELY, STD. Nml interval duration and axis. Nml R wave progression. Absent Q waves. 10/03/19 20:49 Laboratory Tests 10/03/19 10/03/19 15:39 15:39 WBC 4.8 Hgb 14.6 Hct 44.8 Plt Count 274 BUN 10.9 Creatinine 1.0 Random Glucose 83 Troponin I < 0.02 10/03/19 21:49 CTH: No acute change Patient endorsed to Dr. Belle. Admitted tele. Discharge - Discharge Information Problems reviewed: Yes Clinical Impression/Diagnosis: Dizziness Condition: Stable - Admission Yes - Follow up/Referral Referrals: Franky Smith MD [Primary Care Provider] - - Patient Discharge Instructions - Post Discharge Activity
[2019-10-03] MEDS ORDERED: SODIUM CHLORIDE 500 ML IV STA (22:28)
--- NOTE | 2019-10-03 22:47 | PN ---
Physical Exam: SUBJECTIVE: 74 y/o female w PMH HLD, HTN, and vertigo presenting with c/o dizziness. She states that staring this afternoon, while cleaning her home she felt light-headed. She did NOT feel the room spinning, did not fall, and there was no LOC. She states that she drank some water and resting in bed, which alleviated her symptoms. She states she experienced concurrent palpitations. Otherwise there were no associated symptoms. She states that she has not been drinking much water recently but has been taking her home medications as prescribed. She denies NVFD. She denies recent illness, sick contacts and recent travel. She denies SOB and CP. PCP: Dr. Koch Past surgical history: RIGHT knee arthroscopic repair Past social history: Denies etoh, cigarette, and recreational drug use. She admits to a poor diet; low fiber/processed foods. No regular exercise Family history: Pt unaware NKFDA OBJECTIVE: Vital Signs Period Temp Pulse Resp BP Sys/Rodriguez Pulse Ox Last 24 Hr 98.5 F-98.6 F 101-105 15-16 145-163/73-95 97-97 GENERAL: The patient is awake, alert, and fully oriented, in no acute distress. HEAD: Normal with no signs of trauma. EYES: PERRL, extraocular movements intact, sclera anicteric, conjunctiva clear. No ptosis. ENT: Ears normal, nares patent, oropharynx clear without exudates, moist mucous membranes. NECK: Trachea midline, full range of motion, supple. LUNGS: Breath sounds equal, clear to auscultation bilaterally, no wheezes, no crackles, no accessory muscle use. HEART: Regular rate and rhythm, S1, S2 without murmur, rub or gallop. ABDOMEN: Soft, nontender, nondistended, normoactive bowel sounds, no guarding, no rebound, no hepatosplenomegaly, no masses. EXTREMITIES: 2+ pulses, warm, well-perfused, no edema. NEUROLOGICAL: Cranial nerves II through XII grossly intact. Normal speech, gait not observed. PSYCH: Normal mood, normal affect. SKIN: Warm, dry, normal turgor, no rashes or lesions noted Laboratory Results - last 24 hr 10/03/19 10/03/19 15:39 15:39 WBC 4.8 RBC 5.12 Hgb 14.6 Hct 44.8 MCV 87.5 MCH 28.5 MCHC 32.6 RDW 15.4 Plt Count 274 MPV 8.6 Absolute Neuts (auto) 2.5 Neutrophils % 52.9 Lymphocytes % 31.3 Monocytes % 12.5 H Eosinophils % 1.9 Basophils % 1.4 Nucleated RBC % 0 Sodium 142 Potassium 4.1 Chloride 108 H Carbon Dioxide 27 Anion Gap 7 L BUN 10.9 Creatinine 1.0 Est GFR (CKD-EPI)AfAm 63.38 Est GFR (CKD-EPI)NonAf 54.68 Random Glucose 83 Calcium 9.8 Total Bilirubin 0.4 AST 30 ALT 27 Alkaline Phosphatase 142 H Creatine Kinase 174 Creatine Kinase Index 1.2 CK-MB (CK-2) 2.2 Troponin I < 0.02 Total Protein 8.0 Albumin 4.0 ASSESSMENT/PLAN: ATTENDING PHYSICIAN STATEMENT I saw and evaluated the patient. I reviewed the resident's note and discussed the case with the resident. I agree with the resident's findings and plan as documented. SUBJECTIVE: OBJECTIVE: ASSESSMENT AND PLAN:
[2019-10-03 22:48] LABS: PH,URINE 6.5 (5.0-8.0); URINE APPEARANCE CLEAR; URINE BILIRUBIN NEGATIVE (NEGATIVE); URINE COLOR YELLOW; URINE GLUCOSE (UA) NEGATIVE (NEGATIVE); URINE KETONE NEGATIVE (NEGATIVE); URINE LEUK ESTERASE NEGATIVE (NEGATIVE); URINE NITRITE NEGATIVE (NEGATIVE); URINE PROTEIN NEGATIVE (NEGATIVE); URINE UROBILINOGEN 0.2 mg/dL (0.2-1.0)
--- NOTE | 2019-10-03 23:01 | HP ---
CHIEF COMPLAINT: Dizziness PCP: Franky Smith MD HISTORY OF PRESENT ILLNESS: 74 y/o female w PMH HLD, HTN, and vertigo presenting with c/o dizziness. She states that starting this afternoon (10/02/19), while cleaning her home she felt light-headed. She did NOT feel the room spinning, no aura, did not fall, and there was no LOC. She was NOT doing any heavy lifting; was packing groceries. She states that she drank some water and rested in bed, which alleviated her symptoms. She is able to walk for 1 mile w/o symptoms. She states she experienced concurrent palpitations. Otherwise there were no associated symptoms. She states that she has not been drinking much water recently but has been taking her home medications as prescribed. She denies feeling anxious and reports no new/excess stress. She denies NVFD. She denies recent illness, sick contacts and recent travel. She denies SOB and CP. ER course was notable for: (1) Sinus tachycardia HR 108 (2) NSR (3) Orthostatic BP NEGATIVE Recent Travel: Denies PAST MEDICAL HISTORY: PMH HLD, HTN, and vertigo PAST SURGICAL HISTORY: RIGHT knee arthroscopic repair Social History: Smoking: denies Alcohol: denies Drugs: denies Family History: Unaware Allergies: No Known Drug Allergies Allergy (Verified 04/24/19 09:32) HOME MEDICATIONS: Home Medications Medication Instructions Recorded Aspirin [Ecotrin] 81 mg PO ASDIR 03/09/15 Cholecalciferol (Vitamin D3) 1,000 unit PO DAILY 03/09/15 [Vitamin D3] Cyanocobalamin [Vitamin B12 -] 500 mcg PO DAILY 03/09/15 [place]-3S/Dha/Epa/Fish Oil [[place]-3 1 each PO DAILY 03/09/15 Fish Oil 1,000 mg Sfgl] Magnesium Oxide [Magnesium] 400 mg PO HS 03/18/17 Atorvastatin Ca [Lipitor] 10 mg PO ASDIR 04/24/19 Valsartan 350 mg PO DAILY 04/24/19 Vit C/E/Zn/Coppr/Lutein/Zeaxan 1 each PO ASDIR 04/24/19 [Preservision Areds 2 Softgel] REVIEW OF SYSTEMS CONSTITUTIONAL: Absent: fever, chills, diaphoresis, generalized weakness, malaise, loss of appetite, weight change HEENT: Absent: rhinorrhea, nasal congestion, throat pain, throat swelling, difficulty swallowing, mouth swelling, ear pain, eye pain, visual changes CARDIOVASCULAR: Absent: chest pain, syncope, palpitations, irregular heart rate, lightheadedness , peripheral edema RESPIRATORY: Absent: cough, shortness of breath, dyspnea with exertion, orthopnea, wheezing, stridor, hemoptysis GASTROINTESTINAL: Absent: abdominal pain, abdominal distension, nausea, vomiting, diarrhea, constipation, melena, hematochezia GENITOURINARY: Absent: dysuria, frequency, urgency, hesitancy, hematuria, flank pain, genital pain MUSCULOSKELETAL: Absent: myalgia, arthralgia, joint swelling, back pain, neck pain SKIN: Absent: rash, itching, pallor HEMATOLOGIC/IMMUNOLOGIC: Absent: easy bleeding, easy bruising, lymphadenopathy, frequent infections ENDOCRINE: Absent: unexplained weight gain, unexplained weight loss, heat intolerance, cold intolerance NEUROLOGIC: Absent: headache, focal weakness or paresthesias, dizziness, unsteady gait, seizure, mental status changes, bladder or bowel incontinence PSYCHIATRIC: Absent: anxiety, depression, suicidal or homicidal ideation, hallucinations. PHYSICAL EXAMINATION Vital Signs - 24 hr 10/03/19 10/03/19 15:15 17:24 Temperature 98.6 F 98.5 F Pulse Rate 105 H Pulse Rate [ 101 H Right Radial] Respiratory 16 15 Rate Blood Pressure 163/95 Blood Pressure 145/73 [Right Arm] O2 Sat by Pulse 97 97 Oximetry (%) Orthostatic BP NEGATIVE GENERAL: AOx3, in no acute distress. HEAD: NCAT EYES: CHEKO, EOMI, conjunctiva clear. ENT: Ears normal, nares patent, oropharynx clear without exudates. Moist mucous membranes. NECK: Normal range of motion, supple without lymphadenopathy, JVD, or masses. LUNGS: CTAB. No wheezes, and no crackles. No accessory muscle use. HEART: RRR s1 s2 ABDOMEN: Soft, BS present in all 4 quadrants, non-distended, no JVD, MUSCULOSKELETAL: No bony deformities or tenderness. No CVA tenderness. UPPER EXTREMITIES: 2+ pulses, warm, well-perfused. No cyanosis. No clubbing. No peripheral edema. LOWER EXTREMITIES: 2+ pulses, warm, well-perfused. No calf tenderness. No peripheral edema. NEUROLOGICAL: Cranial nerves II-XII intact. Normal speech. Normal gait and no induced symptoms. NO dysdiadodyskinesia. PSYCHIATRIC: Cooperative. Good eye contact. Appropriate mood and affect. SKIN: Warm, dry, normal turgor, no rashes or lesions noted, normal capillary refill. Laboratory Results - last 24 hr 10/03/19 10/03/19 10/03/19 15:39 15:39 22:40 WBC 4.8 RBC 5.12 Hgb 14.6 Hct 44.8 MCV 87.5 MCH 28.5 MCHC 32.6 RDW 15.4 Plt Count 274 MPV 8.6 Absolute Neuts (auto) 2.5 Neutrophils % 52.9 Lymphocytes % 31.3 Monocytes % 12.5 H Eosinophils % 1.9 Basophils % 1.4 Nucleated RBC % 0 Sodium 142 Potassium 4.1 Chloride 108 H Carbon Dioxide 27 Anion Gap 7 L BUN 10.9 Creatinine 1.0 Est GFR (CKD-EPI)AfAm 63.38 Est GFR (CKD-EPI)NonAf 54.68 Random Glucose 83 Calcium 9.8 Total Bilirubin 0.4 AST 30 ALT 27 Alkaline Phosphatase 142 H Creatine Kinase 174 Creatine Kinase Index 1.2 CK-MB (CK-2) 2.2 Troponin I < 0.02 Total Protein 8.0 Albumin 4.0 Urine Color Yellow Urine Appearance Clear Urine pH 6.5 D Ur Specific [place] 1.011 Urine Protein Negative Urine Glucose (UA) Negative Urine Ketones Negative Urine Blood Negative Urine Nitrite Negative Urine Bilirubin Negative Urine Urobilinogen 0.2 Ur Leukocyte Esterase Negative ASSESSMENT/PLAN: 74 y/o female w PMH HLD, HTN, and vertigo presenting with c/o dizziness. She describes poor hydration. Orthostatic BP negative. Compliant with vertigo regimen. # Pre-syncope - Admit to observation - Hydrate - Electrocardiogram - Carotid Doppler - TSH - Bedrest - Fall precautions - U tox - b12 #F/E/N - NS - Cont. to monitor - Sodium controlled diet # DVT prophylaxis - Heparin SQ # Disposition - Admit to observation Steve Dahl MD Visit type - Emergency Visit Emergency Visit: Yes ED Registration Date: 10/03/19 Care time: The patient presented to the Emergency Department on the above date and was hospitalized for further evaluation of their emergent condition. - New Patient This patient is new to me today: Yes Date on this admission: 10/04/19 - Critical Care Critical Care patient: No ATTENDING PHYSICIAN STATEMENT I saw and evaluated the patient. I reviewed the resident's note and discussed the case with the resident. I agree with the resident's findings and plan as documented. SUBJECTIVE: OBJECTIVE: ASSESSMENT AND PLAN:
--- NOTE | 2019-10-04 01:15 | PN ---
Teaching Attending Note Name of Resident: Steve Dahl ATTENDING PHYSICIAN STATEMENT I saw and evaluated the patient. I reviewed the resident's note and discussed the case with the resident. I agree with the resident's findings and plan as documented. SUBJECTIVE: 74-year-old woman with a history of hypertension, dyslipidemia, vertigo presented to hospital complaining of lightheadedness since 2 PM on 10/03/2019. Patient noticed that this lightheadedness was worse with standing up quickly. Patient reports that she took meclizine with no relief of symptoms. No chest pain, palpitations, or shortness of breath OBJECTIVE: Last Vital Signs Temp Pulse Resp BP Pulse Ox 98.5 F 101 H 15 145/73 97 10/03/19 17:24 10/03/19 17:24 10/03/19 17:24 10/03/19 17:24 10/03/19 17:24 GENERAL: Well developed, well nourished. Awake and alert. No acute distress. HEENT: Normocephalic, atraumatic. PERRLA, EOMI. No conjunctival pallor. Sclera are non- icteric. Moist mucous membranes. Oropharynx is clear. NECK: Supple. Full ROM. No JVD. Carotid pulses 2+ and symmetric, without bruits. No thyromegaly. No lymphadenopathy. CARDIOVASCULAR: Regular rate and rhythm. No murmurs, rubs, or gallops. Distal pulses are 2+ and symmetric. PULMONARY: No evidence of respiratory distress. Lungs clear to auscultation bilaterally. No wheezing, rales or rhonchi. ABDOMINAL: Soft. Non-tender. Non-distended. No rebound or guarding. No organomegaly. Normoactive bowel sounds. MUSCULOSKELETAL Normal range of motion at all joints. No bony deformities or tenderness. No CVA tenderness. EXTREMITIES: No cyanosis. No clubbing. No edema. No calf tenderness. SKIN: Warm and dry. Normal capillary refill. No rashes. No jaundice. PSYCHIATRIC: Cooperative. Good eye contact. Appropriate mood and affect. Abnormal Lab Results 10/03/19 10/03/19 15:39 15:39 Monocytes % 12.5 H Chloride 108 H Anion Gap 7 L Alkaline Phosphatase 142 H Imaging studies reviewed ASSESSMENT AND PLAN: 74-year-old woman with lightheadedness. Suspect may be secondary to orthostatic hypotension. Differential diagnosis also includes vasovagal or occult arrhythmia. Telemetry observation Bedrest and fall precautions Check orthostatics TSH Vitamin B12 Urine toxicology screen Gentle IV fluid hydration Echo Continue home medications Would avoid diuretics Counseled patient to stay well-hydrated DVT prophylaxis with heparin subcu
[2019-10-04] MEDS ORDERED: HEPARIN NA (PORCINE) 5,000 UNITS/ML 1ML VIAL SQ SCH (06:00)
[2019-10-04] MEDS ORDERED: HEPARIN NA (PORCINE) 5,000 UNITS/ML 1ML VIAL ONE (06:18)
[2019-10-04 08:04] LABS: BLOOD UREA NITROGEN 11.6 mg/dL (7-18); CALCIUM 9.1 mg/dL (8.5-10.1); MAGNESIUM 2.1 mg/dL (1.8-2.4)
[2019-10-04 08:10] LABS: HEMATOCRIT 40.5 % (32.4-45.2); HEMOGLOBIN 13.3 GM/dL (10.7-15.3); MCH 28.8 pg (25.7-33.7); MCHC 32.8 g/dl (32.0-36.0); MEAN CELL VOLUME 87.7 fl (80-96); MEAN PLT VOLUME 8.9 fl (7.5-11.1); PLATELET COUNT 251 K/MM3 (134-434); RBC 4.62 M/mm3 (3.60-5.2); RDW 15.2 % (11.6-15.6); WHITE BLOOD COUNT 4.7 K/mm3 (4.0-10.0)
--- NOTE | 2019-10-04 09:09 | PN ---
Progress Note, Physician History of Present Illness: 74 y/o female w PMH HLD, HTN, and vertigo presenting with c/o dizziness. She states that starting this afternoon (10/02/19), while cleaning her home she felt light-headed. She did NOT feel the room spinning, no aura, did not fall, and there was no LOC. She was NOT doing any heavy lifting; was packing groceries. She states that she drank some water and rested in bed, which alleviated her symptoms. She is able to walk for 1 mile w/o symptoms. She states she experienced concurrent palpitations. Otherwise there were no associated symptoms. She states that she has not been drinking much water recently but has been taking her home medications as prescribed. She denies feeling anxious and reports no new/excess stress. - Current Medication List Current Medications: Active Medications Amlodipine Besylate (Norvasc -) 5 mg PO DAILY [facility] Aspirin (Ecotrin -) 81 mg PO Q2D [facility] Atorvastatin Calcium (Lipitor -) 10 mg PO Q2D [facility] Heparin Sodium (Porcine) (Heparin -) 5,000 unit SQ TID [facility] Last Admin: 10/04/19 06:25 Dose: 5,000 unit Magnesium Oxide (Mag-Ox -) 400 mg PO DAILY [facility] Meclizine HCl (Antivert -) 25 mg PO DAILY [facility] Non-Formulary Medication (Valsartan [Valsartan]) 1 tab PO DAILY [facility] - Objective Vital Signs: Vital Signs Temperature 98.5 F 10/03/19 17:24 Pulse Rate 81 10/04/19 07:20 Respiratory Rate 18 10/04/19 07:20 Blood Pressure 125/75 10/04/19 07:20 O2 Sat by Pulse Oximetry (%) 98 10/04/19 07:20 Labs: CBC, BMP 10/04/19 05:50 10/04/19 05:50 Problem List - Problems (1) Vertigo Code(s): R42 - DIZZINESS AND GIDDINESS (2) Prophylactic measure Code(s): Z29.9 - ENCOUNTER FOR PROPHYLACTIC MEASURES, UNSPECIFIED (3) Pre-syncope Code(s): R55 - SYNCOPE AND COLLAPSE (4) Hyperlipidemia Code(s): E78.5 - HYPERLIPIDEMIA, UNSPECIFIED (5) Hypertension Code(s): I10 - ESSENTIAL (PRIMARY) HYPERTENSION
[2019-10-04] MEDS ORDERED: ASPIRIN COATED 81 MG TABLET.EC PO SCH (10:00)
[2019-10-04] MEDS ORDERED: MAGNESIUM OXIDE 400 MG TABLET (FP) PO SCH (10:00)
[2019-10-04] MEDS ORDERED: VALSARTAN PO SCH (10:00)
[2019-10-04] MEDS ORDERED: ATORVASTATIN CA 10 MG TABLET (FP) PO SCH (10:00)
[2019-10-04] MEDS ORDERED: amLODIPine BESYLATE 5 MG TABLET (FP) PO SCH (10:00)
[2019-10-04] MEDS ORDERED: MECLIZINE HCL 25 MG TABLET (FP) PO SCH (10:00)
--- NOTE | 2019-10-04 10:40 | EKG ---
Test Reason : Blood Pressure : / mmHG Vent. Rate : 108 BPM Atrial Rate : 108 BPM P-R Int : 142 ms QRS Dur : 072 ms QT Int : 334 ms P-R-T Axes : 061 002 044 degrees QTc Int : 447 ms SINUS TACHYCARDIA BIATRIAL ENLARGEMENT Prolonged QTc ABNORMAL ECG Confirmed by MD OSCAR, MATHIEU ([id number]) on 10/04/2019 10:39:52 AM Referred By: Confirmed By:MATHIEU MOORE MD
--- NOTE | 2019-10-04 11:34 | ECHO ---
Version: 1 Name: BRENDA ROBERT Exam: Adult Echocardiogram Study Date: 10/04/2019, 7:35 AM Age: 74 Years MMode/2D Measurements & Calculations IVSd: 0.95 cm LVIDs: 2.6 cm LVIDd: 3.5 cm LVPWd: 0.90 cm LAV (MOD-bp): 48.2 ml LVOT diam: 1.99 cm Ao root diam: 2.6 cm LA dimension: 3.0 cm Doppler Measurements & Calculations MV E max myles: 84.0 cm/sec Med E/e': 11.9 MV A max myles: 130.3 cm/sec Med Peak E' Myles: 7.1 cm/sec MV E/A: 0.64 Lat E/e': 9.7 Lat Peak E' Myles: 8.7 cm/sec MR max P.6 mmHg Ao max P.4 mmHg Ao V2 max: 126.2 cm/sec TR max myles: 287.8 cm/sec TR max P.2 mmHg Procedure The study was technically difficult with many images being suboptimal in quality. The patient was in normal sinus rhythm during the exam. Left Ventricle The left ventricular size, thickness and function are normal. Ejection Fraction = 65%. The left vent ricle is hyperdynamic. Intracavitary gradient of 34mmHg. Grade I diastolic dysfunction, (abnormal relaxation pattern). Regional wall motion abnormalities cannot be excluded due to limited visualization. Right Ventricle The right ventricle is normal in size and function. Atria Normal left and right atrial size and function. Mitral Valve The mitral valve is grossly normal. There is trace mitral regurgitation. Tricuspid Valve The tricuspid valve is not well visualized, but is grossly normal. There is mild tricuspid regurgita tion. Right ventricular systolic pressure is elevated at 30-40mmHg. Aortic Valve The aortic valve is not well visualized. No hemodynamically significant valvular aortic stenosis. Pulmonic Valve The pulmonic valve is not well visualized. Great Vessels The aortic root is normal size. Pericardium/Pleura There is no pericardial effusion. Summary Statements The study was technically difficult with many images being suboptimal in quality. The left ventricle is hyperdynamic. Intracavitary gradient of 34mmHg Grade I diastolic dysfunction, (abnormal relaxation pattern). Regional wall motion abnormalities cannot be excluded due to limited visualization. Normal left and right atrial size and function. There is trace mitral regurgitation. There is mild tricuspid regurgitation. Right ventricular systolic pressure is elevated at 30-40mmHg. No hemodynamically significant valvular aortic stenosis. MD Nathan Sloan 10/04/2019, 11:34 AM Ordering Physician: ELOISA QUEZDAA Performed By: Ernestina Zhang
[2019-10-04] MEDS ORDERED: PT OWN MED DRAWER 7, Y5N ONE (12:28)
--- NOTE | 2019-10-04 12:55 | DS ---
Physical Exam: SUBJECTIVE: Patient seen and examined OBJECTIVE: 74 y/o female w PMH HLD, HTN, and vertigo presenting with c/o dizziness. She states that starting this afternoon (10/02/19), while cleaning her home she felt light-headed. She did NOT feel the room spinning, no aura, did not fall, and there was no LOC. She was NOT doing any heavy lifting; was packing groceries. She states that she drank some water and rested in bed, which alleviated her symptoms. She is able to walk for 1 mile w/o symptoms. She states she experienced concurrent palpitations. Otherwise there were no associated symptoms. She states that she has not been drinking much water recently but has been taking her home medications as prescribed. She denies feeling anxious and reports no new/excess stress. Vital Signs Period Temp Pulse Resp BP Sys/Rodriguez Pulse Ox Last 24 Hr 98.5 F-98.6 F 81-105 15-18 125-163/73-95 97-98 PHYSICAL EXAM GENERAL: AOx3, in no acute distress. HEAD: NCAT EYES: CHEKO, EOMI, conjunctiva clear. ENT: Ears normal, nares patent, oropharynx clear without exudates. Moist mucous membranes. NECK: Normal range of motion, supple without lymphadenopathy, JVD, or masses. LUNGS: CTAB. No wheezes, and no crackles. No accessory muscle use. HEART: RRR s1 s2 ABDOMEN: Soft, BS present in all 4 quadrants, non-distended, no JVD, MUSCULOSKELETAL: No bony deformities or tenderness. No CVA tenderness. UPPER EXTREMITIES: 2+ pulses, warm, well-perfused. No cyanosis. No clubbing. No peripheral edema. LOWER EXTREMITIES: 2+ pulses, warm, well-perfused. No calf tenderness. No peripheral edema. NEUROLOGICAL: Cranial nerves II-XII intact. Normal speech. Normal gait and no induced symptoms. NO dysdiadodyskinesia. PSYCHIATRIC: Cooperative. Good eye contact. Appropriate mood and affect. SKIN: Warm, dry, normal turgor, no rashes or lesions noted, normal capillary refill. LABS Laboratory Results - last 24 hr 10/03/19 10/03/19 10/03/19 15:39 15:39 22:40 WBC 4.8 RBC 5.12 Hgb 14.6 Hct 44.8 MCV 87.5 MCH 28.5 MCHC 32.6 RDW 15.4 Plt Count 274 MPV 8.6 Absolute Neuts (auto) 2.5 Neutrophils % 52.9 Lymphocytes % 31.3 Monocytes % 12.5 H Eosinophils % 1.9 Basophils % 1.4 Nucleated RBC % 0 Sodium 142 Potassium 4.1 Chloride 108 H Carbon Dioxide 27 Anion Gap 7 L BUN 10.9 Creatinine 1.0 Est GFR (CKD-EPI)AfAm 63.38 Est GFR (CKD-EPI)NonAf 54.68 Random Glucose 83 Calcium 9.8 Magnesium Total Bilirubin 0.4 AST 30 ALT 27 Alkaline Phosphatase 142 H Creatine Kinase 174 Creatine Kinase Index 1.2 CK-MB (CK-2) 2.2 Troponin I < 0.02 Total Protein 8.0 Albumin 4.0 TSH Urine Color Yellow Urine Appearance Clear Urine pH 6.5 D Ur Specific [place] 1.011 Urine Protein Negative Urine Glucose (UA) Negative Urine Ketones Negative Urine Blood Negative Urine Nitrite Negative Urine Bilirubin Negative Urine Urobilinogen 0.2 Ur Leukocyte Esterase Negative 10/04/19 10/04/19 05:50 05:50 WBC 4.7 RBC 4.62 Hgb 13.3 Hct 40.5 MCV 87.7 MCH 28.8 MCHC 32.8 RDW 15.2 Plt Count 251 MPV 8.9 Absolute Neuts (auto) Neutrophils % Lymphocytes % Monocytes % Eosinophils % Basophils % Nucleated RBC % Sodium 141 Potassium 4.0 Chloride 106 Carbon Dioxide 27 Anion Gap 8 BUN 11.6 Creatinine 1.0 Est GFR (CKD-EPI)AfAm 63.38 Est GFR (CKD-EPI)NonAf 54.68 Random Glucose 74 Calcium 9.1 Magnesium 2.1 Total Bilirubin AST ALT Alkaline Phosphatase Creatine Kinase Creatine Kinase Index CK-MB (CK-2) Troponin I Total Protein Albumin TSH 1.51 Urine Color Urine Appearance Urine pH Ur Specific [place] Urine Protein Urine Glucose (UA) Urine Ketones Urine Blood Urine Nitrite Urine Bilirubin Urine Urobilinogen Ur Leukocyte Esterase HOSPITAL COURSE: Date of Admission:10/03/19 Date of Discharge: 10/04/19 Minutes to complete discharge: 55 Discharge Summary Problems reviewed: Yes Reason For Visit: PRE-SYNCOPE Current Active Problems Dizziness (Acute) Pre-syncope (Acute) Prophylactic measure (Acute) Vertigo (Acute) Condition: Stable - Instructions Diet, Activity, Other Instructions: YOUR VISIT You came to the hospital because had a syncopal episode-passed out. You were admitted to the hospital and underwent a cortoid doppler of your neck and an echocardiogram. Both were normal. All your blood work was normal MEDICATIONS Please continue to take your home medications as prescribed. You can resume the doses that you missed. ADDITIONAL CARE Please make an appointment to see your primary care provider, Dr. Smith, 1 week from today. ADDITIONAL INFORMATION Please call 911 or come directly to the emergency department if you experience unusual headache, vision change, shortness of breath, chest pain, numbness, tingling, loss of alertness/awareness, loss of function, unusual bleeding or any alarming symptoms. Thank you for allowing me to be involved in your care. Referrals: Franky Smith MD [Primary Care Provider] - 1 Week (call and make an appointment) - Home Medications Comprehensive Discharge Medication List: Ambulatory Orders Aspirin [Ecotrin] 81 mg PO Q2D 03/09/15 Cholecalciferol (Vitamin D3) [Vitamin D3] 2 tab PO DAILY 03/09/15 [place]-3S/Dha/Epa/Fish Oil [[place]-3 Fish Oil 1,000 mg Sfgl] 1,000 mg PO DAILY Magnesium Oxide [Magnesium] 400 mg PO HS 03/18/17 Atorvastatin Ca [Lipitor] 10 mg PO Q2D 04/24/19 Valsartan 1 tab PO DAILY 04/24/19 Vit C/E/Zn/Coppr/Lutein/Zeaxan [Preservision Areds 2 Softgel] 2 tab PO Q2D 04/24 Amlodipine Besylate 5 mg PO DAILY 10/03/19 Cyanocobalamin (Vitamin B-12) [B-12] 500 mcg PO DAILY 10/03/19 Amlodipine Besylate [Norvasc -] 5 mg PO DAILY tablet 10/04/19 Aspirin Coated [Ecotrin -] 81 mg PO Q2D tablet.ec 10/04/19 Atorvastatin Ca [Lipitor] 10 mg PO Q2D tablet 10/04/19 Meclizine HCl 25 mg PO PRN 10/04/19 Problem List - Problems (1) Vertigo Code(s): R42 - DIZZINESS AND GIDDINESS (2) Prophylactic measure Code(s): Z29.9 - ENCOUNTER FOR PROPHYLACTIC MEASURES, UNSPECIFIED (3) Pre-syncope Code(s): R55 - SYNCOPE AND COLLAPSE (4) Hyperlipidemia Code(s): E78.5 - HYPERLIPIDEMIA, UNSPECIFIED (5) Hypertension Code(s): I10 - ESSENTIAL (PRIMARY) HYPERTENSION
[2019-10-04 13:41] VITALS: BP 129/87; PULSE 97; TEMP 98
[2019-10-04] MEDS ORDERED: PATIENT'S OWN MEDICATION (NON-FORMULARY) (Magnesium Oxide [Magnesium] 400 MG) PO SCH (22:00)
== END 2019-10-04 16:30 | disposition home or self-care (01) ==
LOC: JER 15:10 → JERBED 20:45
PROVIDERS: ADMIT Internal Medicine; ATTEND Nurse Practitioner Acute Care
PROC: 3E033NZ Introduction of Analgesics, Hypnotics, Sedatives into Peripheral Vein, Percutaneous Approach (ICD-10-PCS; principal; 2019-10-03)
PROC: 3E0337Z Introduction of Electrolytic and Water Balance Substance into Peripheral Vein, Percutaneous Approach (ICD-10-PCS; 2019-10-03)
PROC: 3E033GC Introduction of Other Therapeutic Substance into Peripheral Vein, Percutaneous Approach (ICD-10-PCS; 2019-10-03)
DX: R55 Syncope and collapse (principal); R42 Dizziness and giddiness; I10 Essential (primary) hypertension; E78.5 Hyperlipidemia, unspecified; R00.0 Tachycardia, unspecified; Z79.82 Long term (current) use of aspirin; Z29.8 Encounter for other specified prophylactic measures
CPT/HCPCS: 36415; 70450-TC; 80048; 80053; 81003; 82550; 82553; 83735; 84443; 84484; 85025; 85027; 93005; 93010; 93306-TC; 93880-TC; 96361; 96372; 96374; 96375; 99283-25; G0378; J0131; J1644

== ENCOUNTER 2020-07-16 08:20 | Emergency (ER) | payer OTHER ==
[2020-07-16 08:26] VITALS: BP 170/97; PULSE 110; TEMP 97.6; BMI 29.0
--- NOTE | 2020-07-16 08:40 | PDOC ---
History of Present Illness - General Chief Complaint: Allergic Reaction Stated Complaint: ALLERGIC REACTION Time Seen by Provider: 07/16/20 08:32 History Source: Patient - History of Present Illness Timing/Duration: reports: other Location: reports: face, scalp Past History - Medical History Allergies/Adverse Reactions: Allergies Allergy/AdvReac Type Severity Reaction Status Date / Time No Known Drug Allergies Allergy Verified 07/16/20 08:23 Home Medications: Ambulatory Orders Aspirin [Ecotrin] 81 mg PO Q2D 03/09/15 Cholecalciferol (Vitamin D3) [Vitamin D3] 2 tab PO DAILY 03/09/15 [place]-3S/Dha/Epa/Fish Oil [[place]-3 Fish Oil 1,000 mg Sfgl] 1,000 mg PO DAILY 03/09/15 Magnesium Oxide [Magnesium] 400 mg PO HS 03/18/17 Atorvastatin Ca [Lipitor] 10 mg PO Q2D 04/24/19 Valsartan 1 tab PO DAILY 04/24/19 Vit C/E/Zn/Coppr/Lutein/Zeaxan [Preservision Areds 2 Softgel] 2 tab PO Q2D 04/24/19 Amlodipine Besylate 5 mg PO DAILY 10/03/19 Cyanocobalamin (Vitamin B-12) [B-12] 500 mcg PO DAILY 10/03/19 Amlodipine Besylate [Norvasc -] 5 mg PO DAILY tablet 10/04/19 Aspirin Coated [Ecotrin -] 81 mg PO Q2D tablet.ec 10/04/19 Atorvastatin Ca [Lipitor] 10 mg PO Q2D tablet 10/04/19 Meclizine HCl 25 mg PO PRN 10/04/19 Acetaminophen [Tylenol] 650 mg PO Q4H #60 tablet 02/18/20 Cephalexin Monohydrate [Keflex -] 500 mg PO BID #20 capsule 02/18/20 Ondansetron [Zofran Odt -] 4 mg SL TID #10 od.tablet 02/18/20 Cephalexin Monohydrate [Keflex -] 500 mg PO BID #14 capsule 05/12/20 Diphenhydramine HCl [Benadryl -] 25 mg PO Q8H #21 capsule 05/12/20 Famotidine [Pepcid -] 20 mg PO BID #14 tablet 05/12/20 Methylprednisolone [Medrol Dose Reg] 4 mg PO ASDIR #21 tablet 05/12/20 Diphenhydramine HCl [Benadryl -] 25 mg PO Q6H #28 capsule 07/16/20 predniSONE [Deltasone -] 20 mg PO ASDIR #11 tablet 07/16/20 Anemia: No Asthma: No Cancer: No Cardiac Disorders: No CVA: No COPD: No CHF: No Dementia: No Diabetes: No GI Disorders: No Disorders: No HTN: Yes Hypercholesterolemia: Yes Liver Disease: No Seizures: No Thyroid Disease: No - Surgical History Abdominal Surgery: No Appendectomy: No Cardiac Surgery: No Cholecystectomy: No Lung Surgery: No Neurologic Surgery: No Orthopedic Surgery: Yes (ARTHROSCOPY-RT KNEE) - Immunization History Immunization Up to Date: Yes - Psycho-Social/Smoking History Smoking History: Never smoked Have you smoked in the past 12 months: No - Substance Abuse Hx (Audit-C & DAST Scrn) How often the patient has a drink containing alcohol: Never Score: In Men: 4 or > Positive; In Women: 3 or > Positive: 0 Screen Result (Pos requires Nsg. Audit-10AR): Negative In the last yr the pt used illegal drug/Rx for NonMed reason: No Score: Yes response is considered Positive: 0 Screen Result (Positive result requires Nsg. DAST-10): Negative Review of Systems - Review of Systems HEENTM: No: Throat Swelling Respiratory: No: Shortness of Breath, Stridor, Wheezing Integumentary: Yes: Pruritus, Rash *Physical Exam - Vital Signs Last Vital Signs Temp Pulse Resp BP Pulse Ox 97.6 F 110 H 18 170/97 100 07/16/20 08:23 07/16/20 08:23 07/16/20 08:23 07/16/20 08:23 07/16/20 08:23 - Physical Exam General Appearance: Yes: Appropriately Dressed. No: Apparent Distress HEENT: positive: Normal Voice Neck: positive: Supple Respiratory/Chest: negative: Respiratory Distress Integumentary: positive: Dry, Warm, Rash (hyperpigmented, scaly macular rash to scalp diffusely, most notably to perimeter ). negative: Hives Neurologic: positive: Fully Oriented, Alert, Normal Mood/Affect Medical Decision Making - Medical Decision Making 07/16/20 08:41 75-year-old female, h/o HTN, HLD, here with pruritic rash to scalp and face starting 4 days ago after using a new hair dye in salon 4 days ago. No respiratory symptoms. No known allergies or history of anaphylaxis. Has not taken anything for her symptoms. Of note, pt was seen in the ER for similar rash after using a different hair dye ~2 months ago see exam Local allergic rxn vs contact dermatitis 2/2 hair dye No resp sxs Dc w/ pred taper, benadryl To refrain from using hair dye in the future To return as needed Discharge - Discharge Information Problems reviewed: Yes Clinical Impression/Diagnosis: Allergic reaction Qualifiers: Encounter type: initial encounter Qualified Code(s): T78.40XA - Allergy, unspecified, initial encounter Condition: Good Disposition: HOME - Additional Discharge Information Prescriptions: Diphenhydramine HCl [Benadryl -] 25 mg PO Q6H #28 capsule predniSONE [Deltasone -] 20 mg PO ASDIR #11 tablet - Follow up/Referral - Patient Discharge Instructions Patient Printed Discharge Instructions: DI for General Allergic Reactions Additional Instructions: Please refrain from using hair dye in the future Take medications as directed and if symptoms worsen, return to the ER - Post Discharge Activity
== END 2020-07-16 08:47 | disposition home or self-care (01) ==
LOC: JER 08:20
DX: T78.40XA Allergy, unspecified, initial encounter (principal)
CPT/HCPCS: 99282-25

== ENCOUNTER 2020-12-29 09:09 | Emergency (ER) | payer OTHER ==
[2020-12-29 09:19] VITALS: BP 160/75; PULSE 105; TEMP 98.1; BMI 29.0
== END 2020-12-29 10:39 | disposition home or self-care (01) ==
LOC: JER 09:09
DX: U07.1 COVID-19 (principal)
CPT/HCPCS: 71046-TC-FY; 99284-25; C9803; U0003

== ENCOUNTER 2020-12-30 11:58 | Emergency (ER) | payer OTHER ==
[2020-12-30] MEDS ORDERED: BAMLANIVIMAB 700 MG in SODIUM CHLORIDE 250 ML IVPB ONE (12:05)
[2020-12-30 12:10] VITALS: BMI 29.0
[2020-12-30 12:59] LABS: BASO % 0.5 % (0-2.0); EOS % 0.3 % (0-4.5); HEMATOCRIT 41.8 % (32.4-45.2); HEMOGLOBIN 13.9 GM/dL (10.7-15.3); LYMPH % 24.2 % (8-40); MCH 28.5 pg (25.7-33.7); MCHC 33.2 g/dl (32.0-36.0); MEAN CELL VOLUME 85.7 fl (80-96); MEAN PLT VOLUME 9.3 fl (7.5-11.1); MONO % 13.2 % (3.8-10.2); NEUT % 61.8 % (42.8-82.8); PLATELET COUNT 223 K/MM3 (134-434); RBC 4.88 M/mm3 (3.60-5.2); RDW 15.3 % (11.6-15.6); WHITE BLOOD COUNT 4.3 K/mm3 (4.0-10.0)
[2020-12-30 13:51] LABS: ANISOCYTOSIS 0; MACROCYTOSIS 0; PLATELET ESTIMATE NORMAL
[2020-12-30 13:54] LABS: CHLORIDE 108 mmol/L (98-107); POTASSIUM 4.2 mmol/L (3.5-5.1); SODIUM 141 mmol/L (136-145)
[2020-12-30 13:57] LABS: BLOOD UREA NITROGEN 13.2 mg/dL (7-18); CALCIUM 8.9 mg/dL (8.5-10.1)
[2020-12-30 13:58] LABS: ALBUMIN 3.4 g/dl (3.4-5.0); ANION GAP 5 MMOL/L (8-16); CO2 27 mmol/L (21-32); GLUCOSE,RANDOM 90 mg/dL (74-106)
[2020-12-30 14:01] LABS: SGOT/AST 34 U/L (15-37); SGPT/ALT 24 U/L (13-61)
[2020-12-30 14:02] LABS: BILIRUBIN,TOTAL 0.9 mg/dL (0.2-1); TOT PROT 7.6 g/dl (6.4-8.2)
[2020-12-30 14:03] LABS: ALK PHOS 104 U/L (45-117)
[2020-12-30 14:46] VITALS: PULSE 91
[2020-12-30 16:14] VITALS: BP 125/88; TEMP 97.5
== END 2020-12-30 17:22 | disposition home or self-care (01) ==
LOC: JER 11:58
DX: U07.1 COVID-19 (principal)
CPT/HCPCS: 36415; 80053; 82550; 82553; 84484; 85025; 93005; 93010; 99285-25; M0239; Q0239

== ENCOUNTER 2021-02-22 09:06 | Emergency (ER) | payer OTHER ==
[2021-02-22 09:22] VITALS: BP 154/91; PULSE 111; TEMP 98.1; BMI 29.0
[2021-02-22] MEDS ORDERED: SODIUM CHLORIDE 500 ML IV STA (09:53)
[2021-02-22] MEDS ORDERED: MECLIZINE HCL 25 MG TABLET (FP) PO ONE (10:16)
[2021-02-22] MEDS ORDERED: MECLIZINE HCL 25 MG TABLET (FP) ONE (10:43)
[2021-02-22 11:02] LABS: BASO % 1.2 % (0-2.0); EOS % 4.2 % (0-4.5); HEMATOCRIT 44.7 % (32.4-45.2); HEMOGLOBIN 14.7 GM/dL (10.7-15.3); LYMPH % 32.3 % (8-40); MCH 28.5 pg (25.7-33.7); MCHC 32.9 g/dl (32.0-36.0); MEAN CELL VOLUME 86.7 fl (80-96); MEAN PLT VOLUME 8.8 fl (7.5-11.1); MONO % 6.5 % (3.8-10.2); NEUT % 55.8 % (42.8-82.8); PLATELET COUNT 250 K/MM3 (134-434); RBC 5.15 M/mm3 (3.60-5.2); RDW 16.2 % (11.6-15.6); WHITE BLOOD COUNT 3.1 K/mm3 (4.0-10.0)
[2021-02-22 11:14] LABS: URINE APPEARANCE CLEAR; URINE BILIRUBIN NEGATIVE (NEGATIVE); URINE COLOR YELLOW; URINE GLUCOSE (UA) NEGATIVE (NEGATIVE); URINE KETONE NEGATIVE (NEGATIVE); URINE LEUK ESTERASE NEGATIVE (NEGATIVE); URINE NITRITE NEGATIVE (NEGATIVE); URINE PROTEIN NEGATIVE (NEGATIVE); URINE UROBILINOGEN 0.2 mg/dL (0.2-1.0)
[2021-02-22 11:28] LABS: CHLORIDE 105 mmol/L (98-107)
[2021-02-22 11:30] LABS: ALBUMIN 3.7 g/dl (3.4-5.0); BLOOD UREA NITROGEN 11.6 mg/dL (7-18); CO2 29 mmol/L (21-32); GLUCOSE,RANDOM 98 mg/dL (74-106)
[2021-02-22 11:33] LABS: CREATININE 1.1 mg/dL (0.55-1.3); SGOT/AST 71 U/L (15-37); SGPT/ALT 42 U/L (13-61)
[2021-02-22 11:34] LABS: BILIRUBIN,TOTAL 0.5 mg/dL (0.2-1); TOT PROT 8.8 g/dl (6.4-8.2)
[2021-02-22 11:36] LABS: ALK PHOS 182 U/L (45-117)
[2021-02-22 13:09] LABS: SODIUM 137 mmol/L (136-145)
[2021-02-22 13:16] LABS: ANION GAP 3 MMOL/L (8-16)
== END 2021-02-22 14:00 | disposition home or self-care (01) ==
LOC: JER 09:06
DX: R42 Dizziness and giddiness (principal)
CPT/HCPCS: 36415; 70450-TC; 80053; 81003; 82550; 82553; 84132; 84484; 85025; 87086; 93005; 93010; 99284-25

== ENCOUNTER 2021-05-21 09:10 | Day surgery (SDC) | payer OTHER ==
[2021-05-21 09:53] VITALS: BMI 29.0
[2021-05-21] MEDS ORDERED: SODIUM CHLORIDE 0.9% P/F 10 ML VIAL IJ ONE ×2 (10:00→11:53)
[2021-05-21] MEDS ORDERED: ceFAZolin SODIUM 1 GM VIAL ONE ×2 (10:00→12:08)
[2021-05-21] MEDS ORDERED: LIDOCAINE HCL 2% JELLY (5 ML/TUBE) ONE (10:00)
[2021-05-21] MEDS ORDERED: LIDOCAINE HCL/PF 2% SDV 5ML VIAL ONE ×2 (10:01→13:37)
[2021-05-21] MEDS ORDERED: KETOROLAC TROMETHAMINE 30 MG/1 ML VIAL ONE (10:04)
[2021-05-21] MEDS ORDERED: ONDANSETRON 4 MG/2 ML VIAL ONE (10:04)
[2021-05-21] MEDS: CELECOXIB 200 MG CAPSULE PO ONE ×2 (10:17→17:20)
[2021-05-21] MEDS ORDERED: PROPOFOL 20 ML ONE ×3 (10:58)
[2021-05-21] MEDS ORDERED: BUPIVACAINE HCL/PF 0.5% (5MG/ML) 10 ML VIAL ONE (11:53)
[2021-05-21] MEDS ORDERED: MIDAZOLAM HCL 2 MG/2 ML SINGLE DOSE VIAL ONE ×2 (11:53→13:22)
[2021-05-21] MEDS ORDERED: BUPIVACAINE LIPOSOME/PF (EXPAREL) 266 MG/20 ML VIAL ONE (11:53)
[2021-05-21] MEDS ORDERED: VANCOMYCIN 1,000 MG VIAL (RESTRICTED TO ID ONLY) ONE (12:08)
[2021-05-21] MEDS ORDERED: TRANEXAMIC ACID 1000 MG/10 ML VIAL IVPUSH ONE (12:15)
[2021-05-21] MEDS ORDERED: CEFAZOLIN 2 GM in DEXTROSE 5%-WATER - 50 ML IVPB ONE (12:15)
[2021-05-21] MEDS ORDERED: ONDANSETRON 4 MG/2 ML VIAL IVPUSH PRN ×2 (12:53→15:34)
[2021-05-21] MEDS ORDERED: MAGNESIUM HYDROX 2400MG/30ML ORAL SUSPENSION 30 ML CUP PO PRN (12:53)
[2021-05-21] MEDS ORDERED: MAG HYDROX/AL HYDROX/SIMETH 30 ML UNIT-DOSE CUP PO PRN (12:53)
[2021-05-21] MEDS ORDERED: BUPIVACAINE HCL 50 ML ONE (12:56)
[2021-05-21] MEDS ORDERED: LACTATED RINGERS SOLUTION 1,000 ML IV SCH (13:00)
[2021-05-21] MEDS ORDERED: ATORVASTATIN CA 10 MG TABLET (FP) PO SCH (13:00)
[2021-05-21] MEDS ORDERED: traMADol HCL 50 MG TABLET PO PRN (15:34)
[2021-05-21] MEDS ORDERED: oxyCODONE HCL 5 MG TABLET PO PRN (15:34)
[2021-05-21] MEDS ORDERED: ACETAMINOPHEN 325 MG TABLET (FP) ONE (15:50)
[2021-05-21] MEDS: ACETAMINOPHEN 325 MG TABLET (FP) PO SCH ×2 (15:54→21:29)
[2021-05-21] MEDS: CEFAZOLIN 2 GM/D5W 2 GM/50 ML ML IVPB SCH (21:29)
[2021-05-21] MEDS: SENNOSIDES/DOCUSATE COMBO (SENNA PLUS) TABLET (UD) PO SCH (21:30)
[2021-05-21] MEDS ORDERED: ATORVASTATIN CA 20 MG TABLET (FP) PO SCH (22:00)
[2021-05-22] MEDS: oxyCODONE HCL 5 MG TABLET PO PRN ×2 (02:18→06:25)
[2021-05-22] MEDS: ACETAMINOPHEN 325 MG TABLET (FP) PO SCH ×4 (03:53→21:00)
[2021-05-22] MEDS: CEFAZOLIN 2 GM/D5W 2 GM/50 ML ML IVPB SCH (05:16)
[2021-05-22 08:41] LABS: HEMATOCRIT 38.8 % (32.4-45.2); MCH 28.6 pg (25.7-33.7); MCHC 33.6 g/dl (32.0-36.0); MEAN PLT VOLUME 9.8 fl (7.5-11.1); PLATELET COUNT 165 10^3/uL (134-434); RBC 4.56 M/mm3 (3.60-5.2)
[2021-05-22] MEDS ORDERED: PATIENT'S OWN MEDICATION (NON-FORMULARY) (Valsartan [Valsartan] 320 MG Tablet) PO SCH (10:00)
[2021-05-22] MEDS: VALSARTAN 160 MG TABLET PO SCH (10:18)
[2021-05-22] MEDS: CYANOCOBALAMIN 1,000 MCG TABLET (FP) PO SCH (10:18)
[2021-05-22] MEDS: PANTOPRAZOLE 40 MG TABLET PO SCH (10:20)
[2021-05-22] MEDS: ASPIRIN 325 MG TABLET PO SCH (10:20)
[2021-05-22] MEDS: SENNOSIDES/DOCUSATE COMBO (SENNA PLUS) TABLET (UD) PO SCH ×2 (10:20→21:01)
[2021-05-22] MEDS: MULTIVITAMINS (DAILY MVI) TABLET (FP) PO SCH (10:38)
[2021-05-23] MEDS: ACETAMINOPHEN 325 MG TABLET (FP) PO SCH ×3 (04:40→16:48)
[2021-05-23 07:45] LABS: HEMATOCRIT 35.6 % (32.4-45.2); HEMOGLOBIN 11.6 GM/dl (10.7-15.3); MCH 27.9 pg (25.7-33.7); MCHC 32.6 g/dl (32.0-36.0); MEAN CELL VOLUME 85.4 fl (80-96); MEAN PLT VOLUME 9.4 fl (7.5-11.1); PLATELET COUNT 152 10^3/uL (134-434); RBC 4.17 M/mm3 (3.60-5.2); RDW 14.1 % (11.6-15.6); WHITE BLOOD COUNT 7.3 K/mm3 (4.0-10.8)
[2021-05-23] MEDS: CYANOCOBALAMIN 1,000 MCG TABLET (FP) PO SCH (10:47)
[2021-05-23] MEDS: VALSARTAN 160 MG TABLET PO SCH (10:47)
[2021-05-23] MEDS: ASPIRIN 325 MG TABLET PO SCH (10:47)
[2021-05-23] MEDS: PANTOPRAZOLE 40 MG TABLET PO SCH (10:48)
[2021-05-23] MEDS: MULTIVITAMINS (DAILY MVI) TABLET (FP) PO SCH (10:48)
[2021-05-23] MEDS: SENNOSIDES/DOCUSATE COMBO (SENNA PLUS) TABLET (UD) PO SCH (10:48)
[2021-05-23 20:37] VITALS: BP 156/66; PULSE 104; TEMP 99.3
== END 2021-05-23 21:07 | disposition home health service (06) ==
LOC: FASUSAT 09:10 → FM/S 17:11 → FASUSAT 05-23 21:07
PROVIDERS: ATTEND Orthopaedic Surgery
PROC: 8E0YXBZ Computer Assisted Procedure of Lower Extremity (ICD-10-PCS; 2021-05-21)
PROC: 8E0Y0CZ Robotic Assisted Procedure of Lower Extremity, Open Approach (ICD-10-PCS; 2021-05-21)
PROC: 0SRC0J9 Replacement of Right Knee Joint with Synthetic Substitute, Cemented, Open Approach (ICD-10-PCS; principal; 2021-05-21 13:38)
DX: M17.11 Unilateral primary osteoarthritis, right knee (principal); I10 Essential (primary) hypertension; E78.5 Hyperlipidemia, unspecified; R50.9 Fever, unspecified
CPT/HCPCS: 20985; 27447; C1776; S2900; 36415; 73560-TC-RT-FY; 85027; 94760; 97010-GP; 97116-GP; 97161-GP

== ENCOUNTER 2021-05-26 14:01 | Emergency (ER) | payer OTHER ==
[2021-05-26 14:31] VITALS: TEMP 97.8; BMI 29.9
[2021-05-26 20:37] VITALS: BP 133/80; PULSE 92
== END 2021-05-26 20:39 | disposition home or self-care (01) ==
LOC: JER 14:01
DX: S09.90XA Unspecified injury of head, initial encounter (principal)
CPT/HCPCS: 70450-TC; 72125-TC; 99284-25

== ENCOUNTER 2021-08-23 09:22 | Observation (INO) | payer OTHER ==
[2021-08-23 09:31] VITALS: BMI 29.9
[2021-08-23] MEDS ORDERED: LACTATED RINGERS SOLUTION 1000 ML INFUS.BAG IV ONE (09:52)
[2021-08-23] MEDS ORDERED: METOCLOPRAMIDE HCL INJECTION 10 MG/2 ML VIAL IVPUSH ONE (09:52)
[2021-08-23] MEDS ORDERED: METOCLOPRAMIDE HCL INJECTION 10 MG/2 ML VIAL ONE (10:03)
[2021-08-23 10:47] LABS: BASO % 0.8 % (0-2.0); EOS % 3.8 % (0-4.5); HEMATOCRIT 42.4 % (32.4-45.2); HEMOGLOBIN 13.9 GM/dL (10.7-15.3); LYMPH % 35.2 % (8-40); MCH 27.1 pg (25.7-33.7); MCHC 32.9 g/dl (32.0-36.0); MEAN CELL VOLUME 82.5 fl (80-96); MEAN PLT VOLUME 8.9 fl (7.5-11.1); MONO % 10.4 % (3.8-10.2); NEUT % 49.8 % (42.8-82.8); PLATELET COUNT 222 10^3/uL (134-434); RBC 5.14 M/mm3 (3.60-5.2); RDW 17.3 % (11.6-15.6); WHITE BLOOD COUNT 3.9 K/mm3 (4.0-10.0)
[2021-08-23 11:06] LABS: CHLORIDE 110 mmol/L (98-107); SODIUM 140 mmol/L (136-145)
[2021-08-23 11:08] LABS: CALCIUM 9.1 mg/dL (8.5-10.1)
[2021-08-23 11:09] LABS: ALBUMIN 3.2 g/dl (3.4-5.0); BLOOD UREA NITROGEN 12.5 mg/dL (7-18); CO2 28 mmol/L (21-32); GLUCOSE,RANDOM 88 mg/dL (74-106)
[2021-08-23 11:12] LABS: SGOT/AST 73 U/L (15-37)
[2021-08-23 11:13] LABS: BILIRUBIN,TOTAL 0.5 mg/dL (0.2-1); TOT PROT 8.5 g/dl (6.4-8.2)
[2021-08-23 11:15] LABS: ALK PHOS 130 U/L (45-117)
[2021-08-23 11:30] LABS: ANION GAP 2 MMOL/L (8-16); SGPT/ALT 31 U/L (13-61)
[2021-08-23 15:30] LABS: BLOOD UREA NITROGEN 11.4 mg/dL (7-18); CALCIUM 9.2 mg/dL (8.5-10.1)
[2021-08-23 15:33] LABS: CREATININE 0.9 mg/dL (0.55-1.3)
[2021-08-23] MEDS ORDERED: PROMETHAZINE HCL 25 MG TABLET PO PRN (16:16)
[2021-08-23 17:46] LABS: PH,URINE 6.5 (5.0-8.0); URINE APPEARANCE CLEAR; URINE BILIRUBIN NEGATIVE (NEGATIVE); URINE COLOR YELLOW; URINE GLUCOSE (UA) NEGATIVE (NEGATIVE); URINE KETONE NEGATIVE (NEGATIVE); URINE LEUK ESTERASE NEGATIVE (NEGATIVE); URINE NITRITE NEGATIVE (NEGATIVE); URINE PROTEIN NEGATIVE (NEGATIVE); URINE UROBILINOGEN 0.2 mg/dL (0.2-1.0)
[2021-08-23] MEDS ORDERED: HEPARIN NA (PORCINE) 5,000 UNITS/ML 1ML VIAL ONE (22:08)
[2021-08-23] MEDS ORDERED: ATORVASTATIN CA 20 MG TABLET (FP) ONE (22:08)
[2021-08-23] MEDS: ATORVASTATIN CA 20 MG TABLET (FP) PO SCH (22:32)
[2021-08-23] MEDS: HEPARIN NA (PORCINE) 5,000 UNITS/ML 1ML VIAL SQ SCH (22:32)
[2021-08-24] MEDS: HEPARIN NA (PORCINE) 5,000 UNITS/ML 1ML VIAL SQ SCH ×3 (06:17→22:25)
[2021-08-24 08:54] LABS: CALCIUM 7.9 mg/dL (8.5-10.1)
[2021-08-24 08:57] LABS: BILIRUBIN,DIRECT 0.2 mg/dL (0.0-0.2); CREATININE 0.8 mg/dL (0.55-1.3)
[2021-08-24 08:59] LABS: BILIRUBIN,TOTAL 0.5 mg/dL (0.2-1); TOT PROT 7.6 g/dl (6.4-8.2)
[2021-08-24] MEDS: ASPIRIN COATED 81 MG TABLET.EC PO SCH (09:26)
[2021-08-24] MEDS: VALSARTAN 160 MG TABLET PO SCH (09:26)
[2021-08-24] MEDS ORDERED: amLODIPine BESYLATE 5 MG TABLET (FP) PO ONE (16:25)
[2021-08-24] MEDS: ATORVASTATIN CA 20 MG TABLET (FP) PO SCH (22:25)
[2021-08-24] MEDS ORDERED: PT OWN MED DRAWER 7, Y5N ONE (22:42)
[2021-08-25] MEDS: HEPARIN NA (PORCINE) 5,000 UNITS/ML 1ML VIAL SQ SCH ×2 (06:33→16:41)
[2021-08-25] MEDS ORDERED: amLODIPine BESYLATE 5 MG TABLET (FP) PO SCH (10:00)
[2021-08-25] MEDS ORDERED: PT OWN MED DRAWER 7, Y5N ONE (10:23)
[2021-08-25] MEDS: VALSARTAN 160 MG TABLET PO SCH (10:54)
[2021-08-25] MEDS: ASPIRIN COATED 81 MG TABLET.EC PO SCH (10:55)
[2021-08-25 14:18] VITALS: BP 168/100; PULSE 104; TEMP 98.2
== END 2021-08-25 19:20 | disposition home health service (06) ==
LOC: JER 09:22 → JERBED 15:39 → J4W 23:11
PROVIDERS: ATTEND Nurse Practitioner Acute Care
PROC: 3E0337Z Introduction of Electrolytic and Water Balance Substance into Peripheral Vein, Percutaneous Approach (ICD-10-PCS; principal; 2021-08-23)
PROC: 3E033GC Introduction of Other Therapeutic Substance into Peripheral Vein, Percutaneous Approach (ICD-10-PCS; 2021-08-23)
DX: H81.10 Benign paroxysmal vertigo, unspecified ear (principal); I10 Essential (primary) hypertension; E78.5 Hyperlipidemia, unspecified; E66.9 Obesity, unspecified; Z68.30 Body mass index [BMI] 30.0-30.9, adult
CPT/HCPCS: 36415; 70450-TC; 71046-TC-FY; 80048; 80053; 80076; 81003; 82550; 82553; 84484; 85025; 87086; 93005; 93010; 96374; 99285-25; C9803; G0378; J1644; U0003; U0005

== ENCOUNTER 2021-08-28 19:00 | Emergency (ER) | payer OTHER ==
[2021-08-28 19:57] VITALS: BMI 29.0
[2021-08-28] MEDS ORDERED: diphenhydrAMINE HCL 25 MG CAPSULE (FP) PO ONE ×2 (20:23→20:30)
[2021-08-28] MEDS ORDERED: METOCLOPRAMIDE HCL 10 MG TABLET (FP) PO ONE (20:23)
[2021-08-28] MEDS ORDERED: LACTATED RINGERS SOLUTION 1000 ML INFUS.BAG IV ONE (20:23)
[2021-08-28] MEDS ORDERED: METOCLOPRAMIDE HCL INJECTION 10 MG/2 ML VIAL IVPUSH ONE (20:28)
[2021-08-28] MEDS ORDERED: METOCLOPRAMIDE HCL INJECTION 10 MG/2 ML VIAL ONE (20:30)
[2021-08-28 21:25] LABS: BASO % 0.7 % (0-2.0); EOS % 4.3 % (0-4.5); HEMATOCRIT 42.6 % (32.4-45.2); HEMOGLOBIN 13.8 GM/dL (10.7-15.3); LYMPH % 31.8 % (8-40); MCH 26.8 pg (25.7-33.7); MCHC 32.4 g/dl (32.0-36.0); MEAN CELL VOLUME 82.7 fl (80-96); MEAN PLT VOLUME 8.7 fl (7.5-11.1); MONO % 10.4 % (3.8-10.2); NEUT % 52.8 % (42.8-82.8); PLATELET COUNT 198 10^3/uL (134-434); RBC 5.15 M/mm3 (3.60-5.2); RDW 17.7 % (11.6-15.6); WHITE BLOOD COUNT 5.1 K/mm3 (4.0-10.0)
[2021-08-28 21:42] LABS: CHLORIDE 107 mmol/L (98-107); SODIUM 138 mmol/L (136-145)
[2021-08-28 21:44] LABS: ALBUMIN 3.2 g/dl (3.4-5.0); BLOOD UREA NITROGEN 16.2 mg/dL (7-18)
[2021-08-28 21:45] LABS: ANION GAP 6 MMOL/L (8-16); CO2 25 mmol/L (21-32)
[2021-08-28 21:47] LABS: SGOT/AST 55 U/L (15-37); SGPT/ALT 35 U/L (13-61)
[2021-08-28 21:49] LABS: BILIRUBIN,TOTAL 0.4 mg/dL (0.2-1); TOT PROT 8.2 g/dl (6.4-8.2)
[2021-08-28 21:50] LABS: ALK PHOS 135 U/L (45-117)
[2021-08-28 21:56] LABS: GLUCOSE,RANDOM 80 mg/dL (74-106)
[2021-08-28 22:27] LABS: PLATELET ESTIMATE DECREASED
[2021-08-28 23:50] VITALS: BP 135/77; PULSE 92; TEMP 98.1
== END 2021-08-28 23:48 | disposition home or self-care (01) ==
LOC: JER 19:00
PROC: 3E033NZ Introduction of Analgesics, Hypnotics, Sedatives into Peripheral Vein, Percutaneous Approach (ICD-10-PCS; principal; 2021-08-28)
DX: R42 Dizziness and giddiness (principal); R00.2 Palpitations
CPT/HCPCS: 36415; 71045-TC-FY; 80053; 84132; 84443; 84484; 85025; 93005; 93010; 99284-25

== ENCOUNTER 2022-06-04 04:18 | Day surgery (SDC) | payer OTHER ==
[2022-06-02 15:34] VITALS: BMI 29.9
[2022-06-04] MEDS ORDERED: BUPIVACAINE HCL/PF 0.5% (5MG/ML) 10 ML VIAL ONE (07:47)
[2022-06-04] MEDS ORDERED: PROPOFOL 20 ML ONE (07:59)
[2022-06-04] MEDS ORDERED: SUCCINYLCHOLINE CHLORIDE 200 MG/10 ML SYRINGE ONE (07:59)
[2022-06-04] MEDS ORDERED: MIDAZOLAM HCL 2 MG/2 ML SINGLE DOSE VIAL ONE (07:59)
[2022-06-04] MEDS ORDERED: ceFAZolin SODIUM 1 GM VIAL IVPB ONE (08:30)
[2022-06-04] MEDS ORDERED: LIDOCAINE HCL 1%, 10 MG/ML (20ML VIAL) ONE (08:37)
[2022-06-04] MEDS ORDERED: LIDOCAINE HCL 1%, 10 MG/ML (20ML VIAL) NR ONE (08:41)
[2022-06-04] MEDS ORDERED: BUPIVACAINE HCL/PF 0.5% (5MG/ML) 10 ML VIAL IJ ONE (08:41)
[2022-06-04] MEDS ORDERED: ONDANSETRON 4 MG/2 ML VIAL IVPUSH PRN (09:55)
[2022-06-04] MEDS ORDERED: oxyCODONE HCL 5 MG TABLET PO PRN ×2 (09:55)
[2022-06-04] MEDS ORDERED: LACTATED RINGERS SOLUTION 1,000 ML IV SCH (10:00)
[2022-06-04 10:43] VITALS: PULSE 78
[2022-06-04 12:12] VITALS: BP 118/70; TEMP 97.8
== END 2022-06-04 12:15 | disposition home or self-care (01) ==
LOC: JASU-SURG 04:18
PROVIDERS: ATTEND Orthopaedic Surgery
PROC: 0JBH0ZZ Excision of Left Lower Arm Subcutaneous Tissue and Fascia, Open Approach (ICD-10-PCS; principal; 2022-06-04 08:00)
DX: D17.22 Benign lipomatous neoplasm of skin and subcutaneous tissue of left arm (principal)
CPT/HCPCS: 88304-TC; 94760

== ENCOUNTER 2022-06-28 07:41 | Emergency (ER) | payer OTHER ==
[2022-06-28 07:56] VITALS: BP 135/71; PULSE 106; RESP 17; TEMP 98.7; BMI 29.0
[2022-06-28] MEDS ORDERED: diphenhydrAMINE HCL 25 MG CAPSULE (FP) PO ONE ×2 (08:18→08:24)
[2022-06-28] MEDS ORDERED: FAMOTIDINE 20 MG TABLET PO ONE (08:19)
[2022-06-28] MEDS ORDERED: predniSONE 20 MG TABLET (UD) PO ONE (08:19)
[2022-06-28] MEDS ORDERED: FAMOTIDINE 20 MG TABLET ONE (08:24)
[2022-06-28] MEDS ORDERED: predniSONE 20 MG TABLET (UD) ONE (08:24)
== END 2022-06-28 08:46 | disposition home or self-care (01) ==
LOC: JER 07:41
DX: T78.40XA Allergy, unspecified, initial encounter (principal)
CPT/HCPCS: 99284-25

== ENCOUNTER 2022-08-18 09:29 | Emergency (ER) | payer OTHER ==
[2022-08-18 09:44] VITALS: RESP 18; BMI 29.0
[2022-08-18] MEDS ORDERED: MECLIZINE HCL 25 MG TABLET (FP) PO ONE (12:06)
[2022-08-18] MEDS ORDERED: ACETAMINOPHEN 325 MG TABLET (FP) PO ONE (12:06)
[2022-08-18] MEDS ORDERED: MECLIZINE HCL 25 MG TABLET (FP) ONE (12:14)
[2022-08-18] MEDS ORDERED: ACETAMINOPHEN 325 MG TABLET (FP) ONE (12:14)
[2022-08-18 13:18] LABS: BASO % 0.6 % (0-2.0); EOS % 2.2 % (0-4.5); HEMATOCRIT 47.2 % (32.4-45.2); HEMOGLOBIN 15.5 GM/dL (10.7-15.3); LYMPH % 40.6 % (8-40); MCH 28.3 pg (25.7-33.7); MCHC 32.8 g/dl (32.0-36.0); MEAN CELL VOLUME 86.1 fl (80-96); MEAN PLT VOLUME 8.7 fl (7.5-11.1); NEUT % 45.6 % (42.8-82.8); PLATELET COUNT 266 10^3/uL (134-434); RBC 5.49 M/mm3 (3.60-5.2); RDW 15.8 % (11.6-15.6); WHITE BLOOD COUNT 4.2 K/mm3 (4.0-10.0)
[2022-08-18 13:34] LABS: BLOOD UREA NITROGEN 8.7 mg/dL (7-18); CALCIUM 9.6 mg/dL (8.5-10.1)
[2022-08-18 13:36] LABS: ALBUMIN 3.8 g/dl (3.4-5.0)
[2022-08-18 13:39] LABS: BILIRUBIN,TOTAL 0.6 mg/dL (0.2-1); TOT PROT 8.4 g/dl (6.4-8.2)
[2022-08-18] MEDS ORDERED: METOCLOPRAMIDE HCL INJECTION 10 MG/2 ML VIAL IVPB ONE (13:52)
[2022-08-18] MEDS ORDERED: SODIUM CHLORIDE 0.9% 500 ML INFUS.BAG IV ONE (14:22)
[2022-08-18] MEDS ORDERED: METOCLOPRAMIDE HCL INJECTION 10 MG/2 ML VIAL ONE (14:30)
[2022-08-18 15:36] VITALS: BP 152/82; PULSE 75; TEMP 98.3
== END 2022-08-18 18:26 | disposition home or self-care (01) ==
LOC: JER 09:29
PROC: 3E033GC Introduction of Other Therapeutic Substance into Peripheral Vein, Percutaneous Approach (ICD-10-PCS; principal; 2022-08-18)
DX: R42 Dizziness and giddiness (principal); I10 Essential (primary) hypertension
CPT/HCPCS: 36415; 80053; 84484; 85025; 93005; 93010; 99284-25

== ENCOUNTER 2024-04-13 10:56 | Observation (INO) | payer OTHER ==
[2024-04-13 11:05] VITALS: BMI 27.4
[2024-04-13 12:44] LABS: EOS % 1.1 % (0-4.5); HEMATOCRIT 45.2 % (32.4-45.2); LYMPH % 26.8 % (8-40); MCH 28.7 pg (25.7-33.7); MCHC 33.2 g/dl (32.0-36.0); MEAN CELL VOLUME 86.3 fl (80-96); MEAN PLT VOLUME 8.1 fl (7.5-11.1); MONO % 7.9 % (3.8-10.2); NEUT % 63.2 % (42.8-82.8); PLATELET COUNT 199 10^3/uL (134-434); RBC 5.24 M/mm3 (3.60-5.2); RDW 16.2 % (11.6-15.6); WHITE BLOOD COUNT 4.9 K/mm3 (4.0-10.0)
[2024-04-13 13:16] LABS: CALCIUM 9.4 mg/dL (8.5-10.1)
[2024-04-13 13:17] LABS: ALBUMIN 3.6 g/dl (3.4-5.0); BLOOD UREA NITROGEN 10.1 mg/dL (7-18)
[2024-04-13 13:20] LABS: CREATININE 0.9 mg/dL (0.55-1.3)
[2024-04-13 13:21] LABS: BILIRUBIN,TOTAL 0.6 mg/dL (0.2-1); TOT PROT 7.7 g/dl (6.4-8.2)
[2024-04-13] MEDS ORDERED: ASPIRIN 81 MG CHEWABLE TABLETS ONE (15:23)
[2024-04-13] MEDS: ASPIRIN 81 MG CHEWABLE TABLETS PO ONE (15:35)
[2024-04-13] MEDS ORDERED: ATORVASTATIN CA 20 MG TABLET (FP) ONE (22:06)
[2024-04-13] MEDS ORDERED: HEPARIN NA (PORCINE) 5,000 UNITS/ML 1ML VIAL ONE (22:06)
[2024-04-13] MEDS: ATORVASTATIN CA 20 MG TABLET (FP) PO SCH (22:13)
[2024-04-13] MEDS: HEPARIN NA (PORCINE) 5,000 UNITS/ML 1ML VIAL SQ SCH (22:13)
[2024-04-14] MEDS ORDERED: amLODIPine BESYLATE 5 MG TABLET (FP) ONE (09:55)
[2024-04-14] MEDS ORDERED: ASPIRIN COATED 81 MG TABLET.EC ONE (09:55)
[2024-04-14] MEDS ORDERED: VALSARTAN 80 MG TABLET ONE (09:55)
[2024-04-14] MEDS ORDERED: ATORVASTATIN CA 20 MG TABLET (FP) ONE (09:55)
[2024-04-14] MEDS ORDERED: HEPARIN NA (PORCINE) 5,000 UNITS/ML 1ML VIAL ONE (09:56)
[2024-04-14] MEDS: VALSARTAN 160 MG TABLET PO SCH (10:02)
[2024-04-14] MEDS: ASPIRIN COATED 81 MG TABLET.EC PO SCH (10:02)
[2024-04-14] MEDS: amLODIPine BESYLATE 5 MG TABLET (FP) PO SCH (10:03)
[2024-04-19 09:02] VITALS: RESP 18
[2024-04-20] MEDS: ACETAMINOPHEN 1000 MG/100 ML BAG IVPB ONE (06:27)
[2024-04-20] MEDS: MECLIZINE HCL 12.5 MG TABLET PO ONE (12:32)
[2024-04-20 14:32] VITALS: BP 135/67; PULSE 96; TEMP 97.5
== END 2024-04-20 16:38 ==
LOC: JER 10:56 → JERBED 15:55 → J4S 04-14 19:50
PROVIDERS: ADMIT Internal Medicine; ATTEND Internal Medicine
PROC: 3E023GC Introduction of Other Therapeutic Substance into Muscle, Percutaneous Approach (ICD-10-PCS; principal; 2024-04-13)
PROC: 3E033NZ Introduction of Analgesics, Hypnotics, Sedatives into Peripheral Vein, Percutaneous Approach (ICD-10-PCS; 2024-04-13)
DX: I24.9 Acute ischemic heart disease, unspecified (principal); I10 Essential (primary) hypertension; E78.5 Hyperlipidemia, unspecified; H81.10 Benign paroxysmal vertigo, unspecified ear; R79.9 Abnormal finding of blood chemistry, unspecified; R07.89 Other chest pain
CPT/HCPCS: 36415; 71045-TC-FY; 71275-TC; 80053; 84484; 85025; 85379; 93005; 93010; 96372; 96374; 97116-GP; 97161-GP; 99285-25; G0378; J0131; J1644; Q9967